=== PATIENT | male | born 1940 | race Caucasian/White ===

== ENCOUNTER 2020-11-30 08:43 | Outpatient (CLI) | payer MEDICARE, SELFPAY ==
[2020-11-30 09:17] LABS: Anion Gap 7 mmol/L (8-16); Blood Urea Nitrogen 23 mg/dL (9-20); Calcium 9.3 mg/dL (8.4-10.2); Carbon Dioxide 30 mmol/L (22-30); Chloride 104 mmol/L (98-107); Estimated Glomerular Filt Rate 45; Glucose 196 mg/dL (65-110); Potassium 4.3 mmol/L (3.4-5.0); Sodium 141 mmol/L (137-145)
== END 2020-11-30 08:44 | disposition home or self-care (01) ==
LOC: ANHSURGERY 08:48
PROVIDERS: Anesthesiology; PCP Emergency Medicine; Visit Provider Plastic Surgery
DX: Z01.818 Encounter for other preprocedural examination (principal); I10 Essential (primary) hypertension
CPT/HCPCS: 36415; 80048

== ENCOUNTER 2020-12-08 01:09 | Day surgery (SDC) | payer MEDICARE, SELFPAY ==
[2020-11-25 15:34] VITALS: BMI 38.3
--- NOTE | 2020-12-07 12:55 | WPDANESEPPF ---
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 Patient Data Age: 80 Gender: M Height: 1.73 m Weight: 114.35 kg Allergies Allergy/AdvReac Type Severity Reaction Status Date / Time No Known Allergies Allergy Verified 12/08/20 10:38 Home Medications Medication Instructions Recorded Confirmed Type alirocumab [Praluent Pen] 75 mg SUBCUT [id number] 11/25/20 11/25/20 History amlodipine 10 mg PO QAM 11/25/20 11/25/20 History aspirin [Aspir-81] 81 mg PO DAILY 11/25/20 11/25/20 History carbamazepine 100 mg PO TID 11/25/20 11/25/20 History cholecalciferol (vitamin D3) 25 mcg PO DAILY 11/25/20 11/25/20 History coQ10 (ubiquinol) 200 mg PO QPM 11/25/20 11/25/20 History finasteride 5 mg PO QAM 11/25/20 11/25/20 History furosemide 40 mg PO BID 11/25/20 11/25/20 History gabapentin 400 mg PO BID 11/25/20 11/25/20 History pantoprazole 20 mg PO DAILY 11/25/20 11/25/20 History Patient hx anesthesia problems: none Family hx anesthesia problems: none Results Review: All pre-operative results and documents have been reviewed as part of the pre-operative evaluation. [facility] Past Medical History Medical History (Updated 12/07/20 @ 12:56 by Vasile Haro DO) GERD (gastroesophageal reflux disease) Hyperlipidemia Hypertension Jaw pain STEPHANIE (obstructive sleep apnea) PONV (postoperative nausea and vomiting) Social History Social History Smoking status: Never smoker Living arrangements: alone Spiritual care concerns: No Anes - Eval Final PreProcedure Day of Procedure 12/07/20 12:55 Patient weight: obese Heart: regular rate and rhythm Lungs: clear to auscultation and normal air movement Airway: Mallampati scale class II Neurological: alert and oriented Last oral intake: >/= 8 hours ASA classification: III Emergent: no Anesthetic plan: proceed Anesthesia type and monitoring: general GIVS and standard monitoring Results Review: All pre-operative results and documents have been reviewed as part of the pre-operative evaluation. Informed Consent: The patient's anesthetic plan and its attendant risks and benefits were discussed with the patient/family/POA. Questions were solicited and answers provided to the satisfaction of the patient/family/POA.
--- NOTE | 2020-12-08 07:13 | WPDHPUPDATE1 ---
History and Physical Update Update Date/Time: 12/08/20 07:13 History and Physical has been reviewed, including an updated exam of the patient. There are NO changes in the patient's condition. Risks, benefits, and alternatives have been discussed and questions answered. Patient agrees to proceed with procedure.
[2020-12-08 10:11] VITALS: BP 182/76; PULSE 70; RESP 18; TEMP 36.2; O2SAT 100
[2020-12-08] MEDS: LACTATED RINGERS 1,000 ML 30 ML IV CONT (10:31)
[2020-12-08 10:36] LABS: Glucose Point of Care 122 mg/dl (65-105)
[2020-12-08] MEDS: LIDO 1%/EPINEPHRINE 1:100,000 50 ML VIAL INFILTRATE (12:14)
[2020-12-08 12:50] VITALS: BP 107/36; PULSE 71; RESP 16; O2SAT 97
--- NOTE | 2020-12-08 13:09 | P.OP_ITS ---
Procedure Note - Detailed Date of Procedure 12/08/20 Pre-op Diagnosis right carpal & cubital tunnel syndrome Post-op Diagnosis same Procedure Performed Right open carpal tunnel release and right ulnar neuroplasty at the elbow Surgeon Roberto Valderrama MD Corporate Director Jhoan christensen Anesthesia [facility] [place] Description of Procedure The right carpal tunnel and cubital tunnel areas were marked on the patient while waiting in the holding area. He was taken to the operating room and placed supine on the operating table. A time-out was held and confirmed. He was given IV sedation and the right upper extremity was prepped and draped in usual fashion. The 2 sites were marked for excision and locally infiltrated with 1% lidocaine with epinephrine. The extremity was exsanguinated and the tourniquet inflated to 250 mmHg. The incision in the palm was made 1st dissection was carried bluntly through the subcutaneous tissue to the palmar aponeurosis. This and the transverse carpal ligament were incised with a 15 blade. The canal was fully opened under 3 point retraction with scissors in both directions. No unusual anatomy was noted. The skin was closed with interrupted 4-0 nylon suture. Attention was turned to the right elbow which was flexed and supported on folded towels. The incision was made as marked and dissection was carried through the subcutaneous tissue to the ulnar nerve which was identified very easily prominently displayed proximal to the medial epicondyle. Distal to that point the overlying fibrous structures were this thick and were lysed with scissors. For the nerve did not sublux. It did not appear to be constricted under the flexor muscle fascia or proximal to the medial epicondyle. Those areas were explored. The wound was closed with intradermal 3-0 Monocryl suture at several sites and the skin was closed with a running intradermal 3-0 Monocryl. Soft flexible bandages were applied to both sites and Talha wraps applied. The tourniquet was released and is discharged from the operating room stable condition. He is discharged instructions in wound care and follow-up and a prescription for hydrocodone 5/325 10. Estimated Blood Loss 3 Tourniquet Time 33 Drains No Packing No Pathology none sent Complications No immediate complications Condition stable Disposition same day
[2020-12-08 13:20] VITALS: BP 137/48; PULSE 65; RESP 16
[2020-12-08 13:20] LABS: Glucose Point of Care 100 mg/dl (65-105)
== END 2020-12-08 14:04 | disposition home or self-care (01) ==
PROVIDERS: PCP Emergency Medicine; Visit Provider Plastic Surgery
PROC: (CPT 64721; principal; 2020-12-08 12:00)
DX: G56.01 Carpal tunnel syndrome, right upper limb (principal); G56.21 Lesion of ulnar nerve, right upper limb; I10 Essential (primary) hypertension; E78.5 Hyperlipidemia, unspecified; G47.33 Obstructive sleep apnea (adult) (pediatric); K21.9 Gastro-esophageal reflux disease without esophagitis; Z79.82 Long term (current) use of aspirin; E66.9 Obesity, unspecified; Z68.37 Body mass index [BMI] 37.0-37.9, adult
CPT/HCPCS: 64721; 64718; 36415; 80048; 82948; A9270; J2704; J3010; J7120

== ENCOUNTER 2021-01-24 08:55 | Outpatient (CLI) | payer MEDICARE, SELFPAY ==
[2021-01-24 10:34] LABS: Anion Gap 7 mmol/L (8-16); Blood Urea Nitrogen 21 mg/dL (9-20); Calcium 9.4 mg/dL (8.4-10.2); Carbon Dioxide 30 mmol/L (22-30); Chloride 102 mmol/L (98-107); Estimated Glomerular Filt Rate 49; Glucose 168 mg/dL (65-110); Potassium 3.5 mmol/L (3.4-5.0); Sodium 139 mmol/L (137-145)
[2021-01-29 08:37] LABS: Carbamazepine Tegretol 3.9 mcg/mL (4.0-12.0)
== END 2021-01-24 08:56 | disposition home or self-care (01) ==
LOC: ANHSURGERY 09:02
PROVIDERS: Anesthesiology; PCP Emergency Medicine; Visit Provider Plastic Surgery
DX: Z79.899 Other long term (current) drug therapy (principal); G89.29 Other chronic pain; Z01.818 Encounter for other preprocedural examination
CPT/HCPCS: 36415; 80048; 80156

== ENCOUNTER 2021-02-02 00:57 | Day surgery (SDC) | payer MEDICARE, SELFPAY ==
[2021-01-19 09:15] VITALS: BMI 38.0
--- NOTE | 2021-01-19 09:22 | PC.NURSE ---
Report to the Outpatient Waiting Room, entrance under the green pavilion located off [facility], at time _0830__ on date _02/02/21_. OR Time: _1030 AM_. - You and your visitor will be asked a series of questions to screen for COVID 19 for your protection. - A mask is required within the hospital. - Only one visitor is allowed at this time. Patient visitors will be guided where to wait when not with patient. Preoperative COVID Testing Requirements: No COVID Test needed if: (proof is required; if not received patient will have Rapid Test prior to entry) - Patient has received COVID Vaccine at least 14 days prior to procedure date or - Patient has positive COVID test result within last 90 days of surgery date. COVID Test needed if above criteria is not met If not COVID vaccinated a COVID test must be conducted within 72 hours of surgery and patient is asked to isolate self from time of testing until procedure. You will go to the [facility] for your COVID testing. The [facility] is located at the corner of [address] [facility]. You will only be called if COVID results are positive and your surgeon may reschedule your elective surgery date. Patients may have clear liquids (water, carbonated beverages, clear teas, apple juice) until 3 hours prior to surgery (0730 AM) with a maximum of 20 ounces. - No food from midnight until time of surgery - Infants may have breast milk until 4 hours before surgery, infant formula 6 hours prior to surgery. - Children will be allowed to drink immediately following surgery. If applicable, please bring a bottle or sippy cup to assist with drinking. Juice, water, soda, and popsicles are readily available. For infants on formula, please bring formula the day of surgery. Pacifiers are allowed. Take the following medications with a SIP of water the morning of surgery: AMLODIPINE, GABAPENTIN, CARBAMAZEPINE Medications to discontinue per physician __ALL VITAMINS_& SUPPLEMENTS Date to take last dose__01/29/21 Please no make-up, nail persian, hairspray, perfume, deodorant, or body powder the day of surgery. No jewelry (including any body piercings) or valuables the day of surgery, leave them at home. Please take a shower or bath the night before, or the morning of, surgery with an antibacterial soap. Wear comfortable, loose fitting clothing. Children are encouraged to wear pajamas. - Jewelry must be removed prior to entering the operating room. Rings and piercings that are not removed may be cut off. - The hospital will not accept responsibility for valuables. - Please leave all valuables, including medications, at home the day of surgery. If you are going home after surgery, a licensed dairy truck driver must drive you home. - NO public transportation without another adult. - We recommend that an adult stay with you for 24 hours following discharge. - We also recommend that you do not drive, make important decision, drink alcoholic beverages, or take any drugs that were not prescribed by your health care provider for at least 24 hours after your discharge time. For Pediatric surgeries, we recommend two adults accompany the child home (only one inside the building at this time). Follow any additional instructions given to you from your surgeon. Telephone instructions given to ___PT and asked if any additional questions and then verbalized understanding. Patient advised to call surgeon office or pre surgery nurse liaison [phone] if any additional questions.
--- NOTE | 2021-02-01 14:46 | P.PNAN_ITS ---
Anes - Initial Pre Proc Eval Procedure: Operation Date: 02/02/21 10:30 Proposed Procedures p Left Open Carpal Tunnel Release, Left Ulnar Neuroplasty at Elbow - Roberto Valderrama MD Date/Time: 02/01/21 14:46 Surgeon: Roberto Valderrama MD Pre Op Diagnosis: left carpal and cubital tunnel syndrome Patient Data Age: 80 Gender: M Height: 1.73 m Weight: 113.4 kg Allergies Allergy/AdvReac Type Severity Reaction Status Date / Time No Known Allergies Allergy Verified 02/02/21 08:55 Home Medications Medication Instructions Recorded Confirmed Type Praluent Pen 75 mg SUBCUT [id number] 11/25/20 02/02/21 History amlodipine 10 mg PO QAM 11/25/20 02/02/21 History aspirin 81 mg PO DAILY 11/25/20 02/02/21 History carbamazepine 100 mg PO TID 11/25/20 02/02/21 History cholecalciferol (vitamin D3) 25 mcg PO DAILY 11/25/20 02/02/21 History coQ10 (ubiquinol) 200 mg PO QPM 11/25/20 02/02/21 History finasteride 5 mg PO QAM 11/25/20 02/02/21 History furosemide 40 mg PO BID 11/25/20 02/02/21 History gabapentin 400 mg PO BID 11/25/20 02/02/21 History pantoprazole 20 mg PO DAILY 11/25/20 02/02/21 History Patient hx anesthesia problems: none Family hx anesthesia problems: none Results Review: All pre-operative results and documents have been reviewed as part of the pre-operative evaluation. [facility] Past Medical History Medical History (Updated 12/07/20 @ 12:56 by Vasile Haro DO) GERD (gastroesophageal reflux disease) Hyperlipidemia Hypertension Jaw pain STEPHANIE (obstructive sleep apnea) PONV (postoperative nausea and vomiting) Social History Social History Smoking status: Never smoker Second hand tobacco smoke exposure: No Alcohol intake: never Substance use: never Substance use type: does not use Living arrangements: alone Spiritual care concerns: No Anes - Eval Final PreProcedure Day of Procedure 02/01/21 14:46 Patient weight: obese Heart: regular rate and rhythm Lungs: clear to auscultation and normal air movement Airway: Mallampati scale class II Neurological: alert and oriented Last oral intake: >/= 8 hours ASA classification: III Emergent: no Anesthetic plan: proceed Anesthesia type and monitoring: general GIVS and standard monitoring Results Review: All pre-operative results and documents have been reviewed as part of the pre-operative evaluation. Informed Consent: The patient's anesthetic plan and its attendant risks and benefits were discussed with the patient/family/POA. Questions were solicited and answers provided to the satisfaction of the patient/family/POA.
--- NOTE | 2021-02-02 07:12 | WPDHPUPDATE1 ---
History and Physical Update Update Date/Time: 02/02/21 07:12 History and Physical has been reviewed, including an updated exam of the patient. There are NO changes in the patient's condition. Risks, benefits, and alternatives have been discussed and questions answered. Patient agrees to proceed with procedure.
[2021-02-02 08:45] VITALS: BP 142/84; PULSE 56; RESP 16; TEMP 36.3; O2SAT 99
--- NOTE | 2021-02-02 08:50 | SUR.PREOP ---
0366 called into or room to inform dr ramirez about abrasion to top of right hand with bandaid to site.no evidence of infection when reapplied bandaid.
[2021-02-02] MEDS: LACTATED RINGERS 1,000 ML 30 ML IV CONT (09:14)
--- NOTE | 2021-02-02 10:19 | SUR.PREOP ---
1019 pt informed delay in procedure.
[2021-02-02] MEDS: LIDO 1%/EPINEPHRINE 1:100,000 50 ML VIAL INFILTRATE (12:11)
[2021-02-02 12:50] VITALS: BP 121/63; PULSE 53; RESP 16; O2SAT 99
--- NOTE | 2021-02-02 13:07 | P.OP_ITS ---
Procedure Note - Detailed Date of Procedure 02/02/21 Pre-op Diagnosis left carpal and cubital tunnel syndrome Post-op Diagnosis same Procedure Performed Left open carpal tunnel release and left ulnar neuroplasty at the elbow Surgeon Roberto Valderrama MD Physical Therapist Technician Alisha Anesthesia [facility] Description of Procedure The 2 sites were marked on the patient in the holding area with his consent. The patient was taken to the operating room and placed supine on the operating table. Time-out was held and confirmed. He was given IV sedation and the extremity was prepped and draped in usual fashion. The 2 sites were marked on the patient and each locally infiltrated with 1% lidocaine with epinephrine. The tourniquet was inflated to 250 mmHg. The surgery was begun and the palm where the incision was made as marked. Dissection was carried bluntly through the subcutaneous tissue to the palmar aponeurosis. This and the transverse retinacular were incised with a 15 blade. Under 3 point retraction the ligament was divided distally and proximally to completely release kit. There was no unusual anatomy noted. The skin was closed with interrupted 4-0 nylon suture. Attention was turned to the elbow this was flexed and supported on folded towels. The incision was made as marked passing between the medial epicondyle on the olecranon. The triceps and ulnar nerve were identified just proximal to the medial epicondyle. These 2 were from each other and the nerve was tracked under Smith's ligament at which area the nerve appeared to be constricted. The complete lysis in that area was done extending under the flexor muscles. Small vessel ends cauterized prior to release of the tourniquet. The wound closed with intradermal interrupted 3-0 Monocryl sutures cross hatching yang. This apposed the wound margins. The skin was closed with a running intradermal 3-0 Monocryl. The usual bandage was applied to both sites. The patient is discharge instructions wound care follow-up in a prescription for hydrocodone 7. Estimated Blood Loss 2 Tourniquet Time 27 Drains No Packing No Pathology none sent Complications No immediate complications Condition stable Disposition same day
[2021-02-02 13:20] VITALS: BP 147/67; PULSE 50; RESP 16
== END 2021-02-02 14:00 | disposition home or self-care (01) ==
PROVIDERS: PCP Emergency Medicine; Visit Provider Plastic Surgery
PROC: (CPT 64721; principal; 2021-02-02 10:30)
DX: G56.02 Carpal tunnel syndrome, left upper limb (principal); G56.22 Lesion of ulnar nerve, left upper limb; I10 Essential (primary) hypertension; E78.5 Hyperlipidemia, unspecified; G47.33 Obstructive sleep apnea (adult) (pediatric); K21.9 Gastro-esophageal reflux disease without esophagitis; E66.9 Obesity, unspecified; Z68.37 Body mass index [BMI] 37.0-37.9, adult; Z79.82 Long term (current) use of aspirin
CPT/HCPCS: 64721; 64718; 36415; 80048; 80156; J2704; J3010; J7120

== ENCOUNTER 2024-09-09 09:05 | Inpatient (IN) | payer MEDICARE, SELFPAY ==
[2024-09-09] VITALS (8 sets, daily range): BP systolic 132–167; BP diastolic 68–95; PULSE 60–84; RESP 13–20; TEMP 36.3–36.6; O2SAT 94–99; BMI 40.2
--- NOTE | ~2024-09-09 | CT_ITS ---
Exam CT cervical spine w con, CT thoracic lumbar w con 09/09/2024 10:25 CDT History extremity weakness Comparison None Technique Thin helical images of the cervical, thoracic and lumbosacral spine were obtained with intravenous co ntrast according to standard protocol. Coronal and sagittal reformatted images are provided. Findings CERVICAL SPINE: Alignment of the cervical spine is anatomic. Vertebral body heights are preserved. Multilevel degener ative changes are seen in the cervical spine. No fracture or subluxation is demonstrated. The dens is intact, and the atlanto-dens interval is normal. Pre-vertebral soft tissues are unremarkable. The vi sualized lung apices are clear. THORACIC SPINE: No fracture or gross subluxation is appreciated. Alignment is satisfactory. No intraspinal or paraspi nal mass or hematoma appreciated. No significant lesion of the visualized airway or lungs. Bibasilar dependent changes. No gross mass or adenopathy identified, considering lack of IV contrast for this e xam. LUMBOSACRAL SPINE: For the purposes of this dictation there are 5 segmented lumbar vertebral bodies, and the S1 segment is incorporated into the sacrum. The lumbar vertebral body heights and densities are within normal limits. Grade 1 retrolisthesis of L 5 across S1, likely degenerative. L3-4 posterior spinal fusion hardware. Intact hardware and no loose honey. Intervertebral disc space narrowing at L5-S1 and T12-L1. No destructive bony lesion or spondylolysis is detected. No significant disk bulge is appreciated, and there is no spinal or foraminal stenosis is detected. No intraspinal or paraspinal mass is identified. Multiple bilateral renal cysts are seen. Impression 1. Multilevel degenerative changes. No acute fracture of the cervical, thoracic or lumbar spine detec vanita by CT. Reviewed, dictated and finalized at location A. Impression 1. Multilevel degenerative changes. No acute fracture of the cervical, thoracic or lumbar spine detected by CT. Impression 1. Multilevel degenerative changes. No acute fracture of the cervical, thoracic or lumbar spine detected by CT.
--- NOTE | ~2024-09-09 | XR_ITS ---
EXAMINATION: XR lumbar puncture diagnostic DATE: 09/09/2024 17:21 INDICATION: Extremity weakness TECHNIQUE: The procedure including the risks and benefits was discussed with the patient. Risks discu ssed included spinal headache, cerebrospinal fluid leak, bleeding, and infection. The patient underst ood the risks and agreed to proceed. A timeout was performed to verify the patient's name, date of , and procedure to be performed. The skin overlying the L3-L4 level was prepped and draped in usual sterile fashion. Subcutaneous 1% lidocaine was used for local anesthesia. A 20 gauge spinal n eedle was advanced under fluoroscopic guidance. The needle was removed and the entry site was cleaned and dressed. There were no immediate complications. A total of 1 fluoroscopic image and one crossta ble lateral radiograph were obtained. The amount of fluoroscopy time used during this procedure was 0 .9 minutes.. Total DAP was 33.5 mGycm^2 The patient was taken to the nursing area for observation. FINDINGS: There is an L3 laminectomy with combined enhancement at anterior and posterior spinal fusio n at L3-L4. Real-time fluoroscopy demonstrates the needle at the L3-L4 level. Opening pressure was 29 cm water. (Normal range is variably defined as 6-20 cm water and up to 25 cm water in obese patients . Pressure >25 cm water is one of the modified Dandy criteria for idiopathic intracranial hypertensio n). 11.5 mL of clear, pink-tinged fluid was collected in 4 tubes. IMPRESSION: 1. Successful fluoro-guided lumbar puncture with elevated opening pressure of 29 cm water. Reviewed, dictated and finalized at location A. IMPRESSION: 1. Successful fluoro-guided lumbar puncture with elevated opening pressure of 2 9 cm water.
--- NOTE | ~2024-09-09 | CT_ITS ---
History: Weakness PROCEDURE: CT head without contrast. COMPARISON: None TECHNIQUE: Axial imaging of the head performed from the skull base to the vertex without IV contrast. Sagittal a nd coronal reformations obtained. DLP: 605 mGy-cm FINDINGS: The ventricles are enlarged. The dilatation of the ventricles is proportional to the degree of sulcal prominence, not uncommon in the senescent brain. Calcifications within the bilateral basal ganglia, a nonspecific finding. Decreased attenuation is identified within the periventricular white matter, likely secondary to micr ovascular ischemic disease, in a patient of this age. There is no mass, mass effect or midline shift. There is no abnormal extra-axial fluid collection or intracranial hemorrhage. Visualized paranasal sinuses are clear. The mastoid air cells are well aerated. No acute displaced fractures within the overlying cranium. Impression: No acute intracranial hemorrhage or suspicious mass effect. Reviewed, dictated and finalized at location A. Impression: No acute intracranial hemorrhage or suspicious mass effect.
--- NOTE | ~2024-09-09 | XR_ITS ---
CHEST RADIOGRAPH CLINICAL HISTORY: weak . COMPARISON: None available TECHNIQUE: Single portable view of the chest. FINDINGS The left mid lung is partially obscured due to pacemaker/AICD generator. Wires project over the right atrium, coronary sinus and right ventricle. Sternal wires and mediastinal clips are identified, the wires are midline and intact. The remainder of the cardiomediastinal silhouette is enlarged, but otherwise unremarkable. Hazy opacification of the left hemidiaphragm, findings suggesting a small left-sided pleural effusion . The remainder of the lungs are clear. IMPRESSION: Small left-sided pleural effusion without focal infiltrate. Reviewed, dictated and finalized at location A.
--- OUTSIDE RECORDS SUMMARY | 2024-09-09 09:47 | XMS_ITS | Clinical Summary ---
Author Organization [facility] Address [address] [place] [address] Care Team Providers Care Rn Interventional Name Role Phone Unavailable Primary Care Provider Unavailabl e Source Comments [facility],non-owned Affiliates and Associated Physician Practices is amultiple site organization consisting of ambulatory clinics and hospital sitesin [place], [place], [place] and [place]. This disclosure is being madepursuant to the Care Everywhere program and may not contain all information available regarding this patient. Last updated 17.[facility] Allergies Active Allergy Reactions Criticality Noted Date Comments Atorvastatin Other 08/17/2015 Cannot tolerate Ezetimibe Myalgias 08/17/2015 Rosuvastatin Myalgias 01/30/2018 Medications * Be aware that medications may not be up to date on this document. Alwaysverify current medications with the patient. PRALUENT 75 MG/ML injection Inject 1 mL subcutaneously every 14 days 0 Active amLODIPine (NORVASC) 10 MG tablet Take 10 mg by mouth once daily 0 Active aspirin buffered (BUFFERIN LOW DOSE) 81 MG tablet Take 81 mg by mouth once daily Active carBAMazepine (TEGRETOL) 100 MG chew tablet Take 1 tablet by mouth 3 times daily 0 Active Cholecalcifero l 25 MCG (1000 UT) Take 1,000 Units by mouth once daily 7 Active Coenzyme Q10 10 MG Take 1 capsule by mouth once daily 4 Active finasteride (PROSCAR) 5 MG tablet Take 5 mg by mouth once daily 0 Active Flaxseed, Linseed, (FLAXSEED OIL) 1000 MG Take 1,000 mg by mouth 2 times daily 4 Active furosemide (LASIX) 40 MG tablet Take 40 mg by mouth 2 times daily 0 Active gabapentin (NEURONTIN) 400 MG capsule Take 1 capsule by mouth 2 times daily 0 Active pantoprazole EC (PROTONIX) 40 MG tablet Take 40 mg by mouth once daily 0 Active tamsulosin (FLOMAX) 0.4 MG capsule Take 0.4 mg by mouth once daily 0 Active HYDROcodone-ac etaminophen (NORCO) 5-325 MG tablet Take 1-2 tablets by mouth every 4 hours as needed for Pain 60 tablet 0 Active chlorzoxazone (PARAFON FORTE DSC) 500 MG tablet Take 1 tablet by mouth every 6 hours while awake 100 tablet 0 Active Active Problems Problem Noted Date Diagnosed Date Lumbar back pain 09/28/2019 Lumbar stenosis with neurogenic claudication CAD (coronary artery disease) 09/01/2019 Overview (09/01/2019): Last Assessment & Plan: Well-controlled at this time, with out anginal symptoms. Regular follow-up with cardiology. Continues on daily low-dose aspirin, lipid-lowering agent, furosemide. No treatment change. Sacroiliitis 11/05/2018 Lumbar radiculopathy 07/07/2018 Overview (09/01/2019): Last Assessment & Plan: See neuralgia, above. Patient continues with interventional pain management as well, which gives temporary relief. He is due for his third of 3 injections this week. Renewing his diazepam for preprocedural sedation. Penile lesion 05/24/2018 Overview (09/01/2019): Last Assessment & Plan: Balanitis, vs. Chafing. Treat with moisture control, topical mupirocin, low- potency topical corticosteroid. Patient to call if not improving despite treatment. Prediabetes 04/02/2018 Overview (09/01/2019): Last Assessment & Plan: Well within the controlled range or mid prediabetic range at last draw at the end of March. Will repeat in 6 months. Neuralgia 12/20/2017 Overview (09/01/2019): Last Assessment & Plan: Patient continues to take carbamazepine, and gabapentin for symptom relief, with reasonable effect. No treatment change. S/P CABG (coronary artery bypass graft) 11/06/19 18 Diffusion capacity of lung (dl), decreased 12/11 Chronic renal insufficiency, stage III (moderate ) 10/15/2016 Overview (09/01/2019): Transitioned From: Chronic renal insufficiency Last Assessment & Plan: Regular follow-up with nephrology, due next month. Relatively stable creatinine. No treatment change at this time. Edema 10/15/2016 Abnormal finding on lung imaging 09/05/2016 Cholelithiasis 08/02/2016 Overview (09/01/2019): Transitioned From: Gallstones BMI 38.0-38.9,adult 05/07/2016 Overview (09/01/2019): Transitioned From: Morbid obesity Last Assessment & Plan: Patient continues to exercise regularly to monitor his dietary intake. Encouraged continued activities. Essential hypertension 08/21/2015 Overview (09/01/2019): Last Assessment & Plan: Well controlled. 1. Medication: continue current medication regimen unchanged, encouraged home monitoring, call for persistent elevations at or above 130/85. 2. Regular aerobic exercise 3. Recheck in 6 months, sooner should new symptoms or problems arise. Mixed hyperlipidemia 08/21/2015 Overview (09/01/2019): Last Assessment & Plan: Patient with statin intolerance and moderate to severe coronary artery disease with hyperlipidemia, doing well on PCSK9 inhibitor. No treatment change. Paroxysmal atrial fibrillation 08/21/2015 Overview (09/01/2019): Last Assessment & Plan: Stable at this time, controlled, with chronic anticoagulation as managed by cardiology. Aspirin for chronic anticoagulation, warfarin was discontinued in early May. Medication management 04/19/2015 Overview (09/01/2019): Transitioned From: detention use of drug Last Assessment & Plan: Routine repeat lab work in 6 months. 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 Check vitamin B12 and folic acid at next blood draw. Immunizations Immunization Administration Dates Next Due INFLUENZA VACCINE 02/18/2012 PNEUMOCOCCAL PPSV23 05/09/2017 Pneumococcal Pcv13 Conj 05/07/2016 ZOSTER VACCINE, LIVE 05/09/2016 Family History Medical History Relation Name Comments Cancer - Other Father Brain cancer CVA Mother Hyperlipidemia Mother Other Son Has a stent, no t sure where Relation Name Status Comments Father Mother Son Alive Social History Tobacco Use Types Packs/Day Years Used Date Smoking Tobacco: Never Smokeless Tobacco: Never Tobacco Cessation:Counseling Given: No Comments:N/A Alcohol Use Standard Drinks/Week Comments Never 0 (1 standard drink = 0.6 oz pur e alcohol) AUDIT-C Answer Date Recorded Q1: How often do you have a drink containing alc ohol? 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 Gender Identity Not on file Sexual Orientation Not on file Last Filed Vital Signs Vital Sign Reading Time Taken Comments Blood Pressure 139/64 09/29/2019 8:07 AM CDT Pulse 69 09/29/2019 8:07 AM CDT Temperature 36.9 C (98.4 F) 09/29/2019 8:07 AM CDT Respiratory Rate 18 09/29/2019 8:07 AM CDT Oxygen Saturation 95% 09/29/2019 8:07 AM CDT Inhaled Oxygen Concentration - - Weight 108.4 kg (239 lb) 09/28/2019 5:36 AM CDT Height 172.7 cm (5' 7.99) 09/28/2019 5:36 AM CD T Body Mass Index 36.35 09/28/2019 5:36 AM CDT Plan of Treatment Health Maintenance Due Date Last Done Comments DTAP/TDAP/TD VACCINES (1 - Tdap) 1961 ZOSTER VACCINE (2 of 3) 07/04/2016 05/09/2016 Respiratory Syncytial Virus (RSV) Vaccine Pt: or over 60 yrs (1 - 1-dose 75+ series) 2017 COVID-19 VACCINE (1 - 2023-2 5 season) 2023 DEPRESSION SCREENING 03/04/2024 INFLUENZA VACCINE (Season Ended) 2024 12/12/2018, 02/18/2012 PNEUMOCOCCAL VACCINE 50+ Completed 018, 05/07/2016 HEPATITIS B VACCINE Aged Out No longe r eligible based on patient's age to complete this topic HIB VACCINE Aged Out No longer eligi ble based on patient's age to complete this topic HPV VACCINE Aged Out No longer eligi ble based on patient's age to complete this topic MENINGOCOCCAL (Group B) VACCINE SHARED DECISION-MAKING Aged Out No longer eligible based on patient's age to complete this topic MENINGOCOCCAL GROUPS A/C/Y/W VACCINE Aged Out No longer eligible b ased on patient's age to complete this topic Insurance [employer]
--- OUTSIDE RECORDS SUMMARY | 2024-09-09 09:47 | XMS_ITS | Clinical Summary ---
Author Organization [facility] Address [address] [place] [address] Care Team Providers Care Mainspring Winder And Oiler Name Role Phone Tyler Valdez MD Primary Care Provider + Allergies Active Allergy Reactions Criticality Noted Date Comments Atorvastatin Other (See comments) Low 08/17/2015 Cannot tolerate Cannot tolerate Ezetimibe Joint pain,Other (Se e comments),Muscle pain Medium 08/17/2015 Rosuvastatin Joint pain,Other (Se e comments) Low 01/30/2018 Medications aspirin 81 mg enteric coated tablet Take 81 mg by mouth daily Active Praluent Pen 75 mg/mL pen injector INJECT 1 ML (75 MG TOTAL) INTO THE SKIN EVERY 14 DAYS. 04/21/2020 Active amLODIPine (NORVASC) 10 mg tablet Take 10 mg by mouth daily 04/03/2020 Active cholecalciferol (VITAMIN D-3) 25 mcg (1,000 unit) tablet Take 1,000 Units by mouth daily 10/15/2016 Active finasteride (PROSCAR) 5 mg tablet Take 5 mg by mouth daily 03/28/2020 Active furosemide (LASIX) 40 mg tablet Take 40 mg by mouth 2 (two) times a day 03/27/2020 Active gabapentin (NEURONTIN) 400 mg capsule Take 400 mg by mouth 2 (two) times a day 05/09/[address] (PROTONIX) 20 mg EC tablet Take 20 mg by mouth daily 03/24/2020 Active tamsulosin (FLOMAX) 0.4 mg extended release capsule Take by mouth daily 04/23/2020 Active coenzyme Q10 10 mg capsule Take 1 capsule by mouth daily 01/12/2014 Active carBAMazepine (TEGretol) 100 mg chewable tabletIndicatio ns:Atypical face pain Take 1 tablet (100 mg total) by mouth 3 (three) times a day 90 tablet 04/11/2021 Active Active Problems Problem Noted Date Diagnosed Date Lumbar spondylosis 06/13/2020 Assessment & Plan (06/13/2020 11:28 AM CDT): Patient has prior history of lumbar spondylosis with medically refractory low back pain. He underwent course of lumbar epidural steroid injections without improvement and ultimately underwent low back surgery was improvement of his low back pain. Medication monitoring encounter 06/13/2020 Assessment & Plan (06/13/2020 11:28 AM CDT): Patient has undergone recent CBC and electrolyte panel screening for potential neutropenia and hyponatremia associated with continued carbamazepine usage. These levels are normal. 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 with symptomatic relief. He is not in need of refill of medication at this time. 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 I have provided patient a copy of his EMG/NCS results in asked that he follow up with his PCP for referral to an upper extremity surgeon of his PCPs preference. Given the electrophysiologic findings, I do not believe he would benefit from a trial of conservative nonsurgical treatment at this time but should pursue consideration of surgical decompressions. I will see him back in the office from the medical neurological standpoint on an as-needed basis. Assessment & Plan (06/13/2020 11:27 AM CDT): Patient has a 1 year history of progressively worsening pain and numbness in the palmar aspects of both hands diffusely. Differential diagnosis includes compressive neuropathy or polyneuropathy. Cervical radiculopathy would be less likely clinically. I will obtain EMG/NCS assessment at [facility] for further evaluation. I will see him back thereafter. Surgical History Surgery Date Site/Laterality Comments HEART SURGERY BACK SURGERY Medical History Medical History Date Comments Hypertension High cholesterol Family History Medical History Relation Name Comments No Known Problems Brother Cancer Father No Known Problems Mother No Known Problems Sister Relation Name Status Comments Brother Father Mother Sister Alive Social History Tobacco Use Types Packs/Day Years Used Date Smoking Tobacco: Never Smokeless Tobacco: Never Personal Safety Answer Date Recorded Getting School Help Needed Not on file 05/18 Sex and Gender Information Value Date Recorded Sex Assigned at Not on file 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 Gender Identity Not on file Sexual Orientation Not on file Obstetrics History Last Filed Vital Signs Vital Sign Reading Time Taken Comments Blood Pressure 118/68 09/22/2020 9:33 AM CDT Pulse 71 09/22/2020 9:33 AM CDT Temperature 36.6 C (97.8 F) 09/22/2020 9:33 AM CDT Respiratory Rate - - Oxygen Saturation - - Inhaled Oxygen Concentration - - Weight 114.6 kg (252 lb 9.6 oz) 09/22/2020 9:33 AM CDT Height 172.7 cm (5' 8) 09/22/2020 9:33 AM CDT Body Mass Index 38.41 09/22/2020 9:33 AM CDT Plan of Treatment Not on file Insurance T MEDICARE AETNA MEDICARE [facility] MEDICARE Address: [facility] [id number] [place] [id number] Care Teams Mainspring Winder And Oiler Relationship Specialty Start Date End Date Tyler Valdez MD PCP - General Internal Medicine 04/22/20
--- OUTSIDE RECORDS SUMMARY | 2024-09-09 09:47 | XMS_ITS | Clinical Summary ---
Author Organization [facility] Address [address] [place] [id number] Phone Care Team Providers Care Entry Level Finance Name Role Phone Tyler Valdez MD Primary Care Provider [phone] Allergies No known active allergies Medications Vitamin D, Cholecalciferol , 1000 units tablet One tab daily 0 7 Active carBAMazepine (CARBATROL) 100 MG 12 hr capsule Take 100 mg by mouth 3 times a day Active Coenzyme Q10 (COQ-10) 10 MG capsule Take 10 mg by mouth 1 (one) time each day Active furosemide (LASIX) 40 MG tablet Take 40 mg by mouth 2 (two) times a day Active gabapentin (NEURONTIN) 300 MG capsule Take by mouth 2 (two) times a day 300mg morning & 600mg bedtime Active pantoprazole (PROTONIX) 20 MG EC tablet Take 20 mg by mouth 1 (one) time each day before breakfast Active losartan (COZAAR) 25 MG tablet Take 25 mg by mouth 1 (one) time each day Active finasteride (PROSCAR) 5 MG tablet Take 5 mg by mouth 1 (one) time each day Active metoprolol succinate XL (TOPROL-XL) 25 MG 24 hr tablet Take 25 mg by mouth 1 (one) time each day Active aspirin (ST NICK) 81 MG EC tablet Take 81 mg by mouth 1 (one) time each day Active spironolactone (ALDACTONE) 25 MG tablet Take 0.5 tablets by mouth 1 (one) time each day Active oxybutynin XL (DITROPAN-XL) 5 MG 24 hr tablet Take 5 mg by mouth 1 (one) time each day Active tiZANidine (ZANAFLEX) 4 MG tablet Take 4 mg by mouth at bed time Active nystatin (MYCOSTATIN) 257632 UNIT/GM powder Apply topically 2 (two) times a day Active calcium carbonate (OS-JOHANA) 1250 (500 Ca) MG tablet Take 1 tablet by mouth in the morning and 1 tablet in the evening. Active senna-docusate (Senexon-S) 8.6-50 MG per tablet Take 1 tablet by mouth in the morning and 1 tablet in the evening. Active Evolocumab (Repatha) 140 MG/ML solution prefilled syringe Inject 1 mL under the skin every 14 (fourteen) days Active Menthol-Zinc Oxide (CALMOSEPTINE EX) Apply topically As directed Active Lidocaine 1.8 % patch Apply topically 1 (one) time each day if needed for mild pain Active polyethylene glycol (GLYCOLAX) 17 g packet Take 17 g by mouth 1 (one) time each day Active Active Problems Problem Noted Date Diagnosed Date Chronic kidney disease stage 3A 03/24/2024 Edema of lower extremity 03/24/2024 Proteinuria 03/21/2021 Essential (primary) hypertension 10/15/2016 Obstructive sleep apnea 10/15/2016 Resolved Problems Problem Noted Date Diagnosed Date Resolved Date Chronic kidney disease stage 3B 10/15/2016 03/24/2024 Edema 10/15/2016 02/11/2020 Immunizations Immunization Administration Dates Next Due Influenza TIV (IM) 12/06/2014(Deferred: Patient Refused) Family History Medical History Relation Comments Diabetes mellitus Relative 1 Heart disease Relative 2 Hypertensive disorder Relative 3 Cerebrovascular accident Relative 4 Kidney disease Sibling 1 Malignant neoplastic disease Sibling 2 Relation Status Comments Relative 1 Relative 2 Relative 3 Relative 4 Sibling 1 Sibling 2 Social History Tobacco Use Types Packs/Day Years Used Date Smoking Tobacco: Never Smokeless Tobacco: Never Tobacco Cessation:Counseling Given: Not Answered Alcohol Use Standard Drinks/Week Comments Never 0 (1 standard drink = 0.6 oz pur e alcohol) AUDIT-C Answer Date Recorded Frequency of Alcohol Consumption Never 12/03/2018 Average Number of Drinks Not on file 019 Frequency of Binge Drinking Not on file 04/2018 Sex and Gender Information Value Date Recorded Sex Assigned at Not on file 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 Gender Identity Not on file Sexual Orientation Not on file Last Filed Vital Signs Vital Sign Reading Time Taken Comments Blood Pressure 139/78 03/24/2024 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 Pulse 83 03/24/2024 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 Temperature - - Respiratory Rate - - Oxygen Saturation - - Inhaled Oxygen Concentration - - Weight 109 kg (240 lb) 03/24/2024 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 pe r pt Height 172.7 cm (5' 8) 03/24/2024 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 Body Mass Index 36.49 03/24/2024 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 Plan of Treatment Upcoming Encounters Date Type Department Care Team (Late st Contact Info) Description 03/23/2025 3:20 PM SETTLEMENT PROCESSOR Office Visit [facility] [address], [address] [place], [place] [id number] Fito Nolen MD [address] [address] Health Maintenance Due Date Last Done Comments Pneumococcal PPSV23/PCV13 65 + Years / High and Highest Risk (2 of 4 - PPSV23, PCV20, or PCV21) 07/02/2016 05/07/2016 COVID-19 Vaccine (4 - 2023- season) 2023 01/18/2021, 05/18/2020, 04/20/2020 Influenza Vaccine (#1) 2024 9, 12/12/2018, 02/18/2012 Insurance MEDICARE [facility] PM INTERFACED INSURANCE Care Teams Entry Level Finance Relationship Specialty [place] [address] [place] [address] PCP - General 03/22/20
--- OUTSIDE RECORDS SUMMARY | 2024-09-09 09:47 | XMS_ITS | Referral Summary ---
Author Organization [facility] Address [address] [place] [address] Care Team Providers Care Auto Inspection Specialist Name Role Phone Tyler Valdez MD Primary [...] clinically. I will obtain EMG/NCS assessment at [facility] for further evaluation. I will see him back thereafter. 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
--- NOTE | 2024-09-09 09:49 | ED_ITS ---
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 Carty in 2020 presents emergency department via EMS from [place] with reported weakness. Patient states in October of 2019 for a mechanical fall and broke a vertebrae in his back. He underwent surgery at [facility] in November of 2023, he does not know the surgeon's name. Since then he has been having some weakness and has been working on physical therapy, however the past 3 weeks he had acute onset worsening weakness to his extremities. He states the weakness started in his bilateral knees, then went to his feet and have progressed to his arms over the past 2 days. He states up until 3 weeks ago he was able to ambulate with a walker without difficulty and over the past 2 days has been unable to stand to urinate. He states he has chronic decreased sensation throughout which does not seem to have changed. He notes that his right lower extremity seems to be more weak than his left and he has been having intermittent myoclonic jerks in the right leg. He states he has had intermittent jerking in the right leg since his back surgery but it seems to have increased over the past few weeks. He also states he is unable to fully extend his 3rd through 5th digits to his bilateral heads over the past 2 days. He denies headache, vision changes, chest pain or shortness of breath, abdominal pain, nausea vomiting, diarrhea, dysuria or hematuria, saddle anesthesia, bowel or bladder incontinence, recent illness, fever. <Mckenna Patel PA-C - Last Filed: 09/09/24 15:40> Related Data Home medications: Home Medications ?Medication ?Instructions ?Recorded ?Confirmed ?Last Taken ?Type aspirin 81 mg tablet,delayed 81 mg PO DAILY 11/25/20 09/09/24 02/01/21 History release cholecalciferol (vitamin D3) 25 25 mcg PO DAILY 11/25/20 09/09/24 01/30/21 History mcg (1,000 unit) tablet coQ10 (ubiquinol) 200 mg capsule 200 mg PO QPM 11/25/20 09/09/24 01/30/21 History finasteride 5 mg tablet 5 mg PO QHS 11/25/20 09/09/24 02/01/21 History furosemide 40 mg tablet 40 mg PO BID 11/25/20 09/09/24 02/01/21 History pantoprazole 20 mg tablet,delayed 20 mg PO DAILY 11/25/20 09/09/24 01/30/21 History release calcium carbonate ([place] 500 mg PO BID 09/09/24 09/09/24 Unknown History Calcium) carbamazepine 100 mg 100 mg PO TID 09/09/24 09/09/24 Unknown History tablet,extended release,12 hr evolocumab 140 mg/mL subcutaneous 140 mg subcut .[id number] 09/09/24 09/09/24 Unknown History pen injector (atha Richard) gabapentin 300 mg capsule 300 mg PO DAILY 09/09/24 09/09/24 Unknown History gabapentin 600 mg tablet 600 mg PO QHS 09/09/24 09/09/24 Unknown History lidocaine 4 % topical patch 1 patch topical Q24H 09/09/24 09/09/24 Unknown History (Aspercreme (lidocaine)) losartan 25 mg tablet 25 mg PO DAILY 09/09/24 09/09/24 Unknown History metoprolol succinate 50 mg 50 mg PO DAILY 09/09/24 09/09/24 Unknown History tablet,extended release 24 hr nystatin 100,000 unit/gram topical 1 applic topical BID 09/09/24 09/09/24 Unknown History powder (Nystop) oxybutynin chloride 5 mg 5 mg PO QHS 09/09/24 09/09/24 Unknown History tablet,extended release 24 hr polyethylene glycol 3350 17 gram 17 g PO DAILY 09/09/24 09/09/24 Unknown History oral powder packet sennosides 8.6 mg-docusate sodium 1 tab-cap PO BID 09/09/24 09/09/24 Unknown History 50 mg tablet (Senexon-S) spironolactone 25 mg tablet 12.5 mg PO DAILY 09/09/24 09/09/24 Unknown History tizanidine 4 mg tablet 4 mg PO QHS 09/09/24 09/09/24 Unknown History <Mckenna Patel PA-C - Last Filed: 09/09/24 15:40> Allergies/Adverse reactions: Allergies Allergy/AdvReac Type Severity Reaction Status Date / Time atorvastatin Allergy Unknown Unknown Verified 09/09/24 09:26 ezetimibe Allergy Unknown Unknown Verified 09/09/24 09:26 rosuvastatin Allergy Unknown Unknown Verified 09/09/24 09:26 <Mckenna Patel PA-C - Last Filed: 09/09/24 15:40> Review of Systems 2 Review of Systems: All systems reviewed & are unremarkable except as noted in HPI and below <Mckenna Patel PA-C - Last Filed: 09/09/24 15:40> [facility] Past Medical History Medical History: Medical History (Updated 09/09/24 @ 18:14 by Rose Mary Snell APRN) Pacemaker Jaw pain PONV (postoperative nausea and vomiting) GERD (gastroesophageal reflux disease) STEPHANIE (obstructive sleep apnea) Hyperlipidemia Hypertension <Mckenna Patel PA-C - Last Filed: 09/09/24 15:40> Surgical History Surgical History: Surgical History S/P AVR (aortic valve replacement) <Mckenna Patel PA-C - Last Filed: 09/09/24 15:40> Social History Social History: Social History Smoking status: Never smoker Second hand tobacco smoke exposure: No Alcohol intake: never Substance use: never Substance use type: does not use Do You Feel Safe in your Home?: Yes Lack of Transportation: No Lack of Food: Never True Current Housing: I Have Housing Concerned About Future Housing: No Difficulty Paying Gas/Electric Bills: No Difficulty Paying for Meds: No Currently Unemployed: No Education: High School Diploma/GED Difficulty w/ Childcare or Family Care: No Living arrangements: alone Gender identity (if verbalized by the patient): Male Sexual Orientation (if Verbalized by the Patient): Straight or Heterosexual Spiritual care concerns: No <Mckenna Patel PA-C - Last Filed: 09/09/24 15:40> Exam 2 Narrative: GENERAL: Well-appearing, well-nourished, and in no acute distress. HEAD: Normocephalic, atraumatic. EYES: PERRLA and EOMI. No ophthalmoplegia ENT: Nares clear, no rhinorrhea or epistaxis. Mucous membranes moist. NECK: No midline cervical spinous tenderness, crepitus, step-offs or deformities BACK: Minimal tenderness to the lumbar spine and right SI with no overlying skin changes, crepitus, step-offs or deformities. No tenderness to the thoracic spine CHEST: Clear to auscultation. No respiratory distress. HEART: Regular rate and rhythm. No murmur heard. Normal peripheral pulses. ABDOMEN: Soft, nontender, nondistended, normal active bowel sounds. EXTREMITIES: Normal range of motion. 2+ pitting edema to bilateral lower extremities which is reportedly chronic and unchanged SKIN: Warm, dry, no rash. NEURO: Alert and oriented x4. Unable to dorsiflex right foot. Right foot plantarflexion and left foot dorsiflexion and plantar flexion 5/5. Minimally able to wiggle toes to the right foot, able to fully range toes to the left foot. 2/5 strength with bilateral hip flexion. Library Associate strength bilaterally 3/5. Shoulder abduction. adduction, elbow flexion and extension 5/5 bilaterally. Bilateral hands held with flexion of the 3rd through 5th position without inability to fully extend 3rd through 5th digits. No ataxia. Sensation slightly diminished throughout which is reportedly chronic, no new decreased sensation per patient. Positive Babinski <Mckenna Patel PA-C - Last Filed: 09/09/24 15:40> Course CHILD CARE CENTRE MANAGER/PA Physician Supervision This visit was performed by both a physician and an APC. I performed all aspects of the MDM as documented. <Torito Pretty MD - Last Filed: 09/09/24 18:25> Vital Signs Vital signs: Vital Signs Temperature 97.6 F 09/09/24 09:03 Pulse Rate 80 09/09/24 09:03 Respiratory Rate 13 09/09/24 09:03 Blood Pressure 147/85 H 09/09/24 09:03 Pulse Oximetry 99 09/09/24 09:03 Temperature 97.3 F L 09/09/24 17:15 Pulse Rate 80 09/09/24 17:15 Respiratory Rate 18 09/09/24 17:15 Blood Pressure 148/68 H 09/09/24 17:15 Pulse Oximetry 97 09/09/24 17:15 <Mckenna Patel PA-C - Last Filed: 09/09/24 15:40> Vital Signs Temperature 97.6 F 09/09/24 09:03 Pulse Rate 80 09/09/24 09:03 Respiratory Rate 13 09/09/24 09:03 Blood Pressure 147/85 H 09/09/24 09:03 Pulse Oximetry 99 09/09/24 09:03 Temperature 97.3 F L 09/09/24 17:15 Pulse Rate 80 09/09/24 17:15 Respiratory Rate 18 09/09/24 17:15 Blood Pressure 148/68 H 09/09/24 17:15 Pulse Oximetry 97 09/09/24 17:15 <Torito Pretty MD - Last Filed: 09/09/24 18:25> MDM - Weakness MDM Narrative Medical decision making narrative: 84-year-old male presents to the emergency department for progressive weakness to his extremities over the past 3 weeks. See HPI for further history. Vitals signs are stable. Exam is notable for the above. Differential diagnosis includes intracranial pathology such as intracranial hemorrhage or mass, transverse myelitis, spinal epidural abscess, syringomyelia, guillian barre syndrome, MS, polymyositis, and other. Will obtain lab work, infectious workup including lactic and blood cultures, UA, CXR, ESR and CRP, CT brain and CT cervical, lumbar and thoracic spine with contrast. Lab work shows no leukocytosis. Hemoglobin 13.9 with no prior for comparison. Chemistries with a BUN of 29, normal creatinine. Calcium mildly elevated at 3, fluids provided. UA is unremarkable. Chest x-ray shows a small left-sided pleural effusion without focal infiltrate. CK within normal limits. ESR and CRP are within normal limits. TSH and lactic within normal limits. EKG shows electronic ventricular pacemaker with a rate of 79 ppm, no ST elevations or depressions. Troponin is undetectable. CT brain shows no acute intracranial process. CT cervical, thoracic or lumbar spine with contrast shows multilevel degenerative changes with no acute fracture of the cervical, thoracic or lumbar spine detected L3-L4 posterior spinal fusion hardware with intact hardware and no loosening. I discussed findings and workup with neurologist, Dr. Israel. Recommends lumbar puncture and agrees to consult. Discussed with Dr. Thompson who will perform LP around 1530 this afternoon. Orders placed. He will likely need MRIs as well. Pt agrees to LP. Discussed risks/benefits or procedure. He is requesting to be DNR. Care coordination is coming to fill out DNR forms with patient. Discussed with hospitalist CHILD CARE CENTRE MANAGER, Rose Mary, who agrees to admission. <Mckenna Patel PA-C - Last Filed: 09/09/24 15:40> Lab Data Result diagrams: 09/09/24 09:23 09/09/24 09:23 <Mckenna Patel PA-C - Last Filed: 09/09/24 15:40> Labs: Lab Results 09/09/24 09/09/24 09/09/24 Range/Units 09:23 09:52 10:18 WBC 6.1 (4.5-10.0) K/mm3 RBC 4.47 L (4.6-6.20) M/mm3 Hgb 13.9 L (14.0-18.0) g/dL Hct 41.8 L (42.0-52.0) % MCV 93.5 (80-100) fl MCH 31.1 (26-34) pg MCHC 33.3 (32-36) g/dl RDW 12.9 (11.5-14.5) % Plt Count 157 (150-375) k/mm3 MPV 11.3 H (7.4-10.4) fl Immature Gran % (Auto) 0.3 (0-0.5) % Neut % (Auto) 66.1 (45.5-73.1) % Lymph % (Auto) 24.6 (18.3-44.2) % [place] % (Auto) 7.2 (2.6-8.5) % Eos % (Auto) 1.6 (0-4.4) % Baso % (Auto) 0.2 (0.2-1.2) % Lymph # (Auto) 1.51 (0.9-3.2) K/mm3 [place] # (Auto) 0.4 (0.1-0.6) K/mm3 Eos # (Auto) 0.1 (0-0.3) K/mm3 Baso # (Auto) 0.0 (0.0-0.1) K/mm3 Abs Immat Gran (auto) 0.02 (0.00-0.031) K/mm3 Absolute Neuts (auto) 4.1 (1.3-6.7) K/mm3 Absolute Nucleated RBC 0.000 (0.0-0.012) K/mm3 Nucleated RBC % 0.0 (0.0-0.2) % % Immature Plt Fraction 4.8 (0.9-11.2) % ESR 17 (0-20) mm/hr PT (11.1-14.7) Seconds INR APTT (22.3-36.8) Seconds Sodium 143 (137-145) mmol/L Potassium 4.0 (3.4-5.0) mmol/L Chloride 104 (98-107) mmol/L Carbon Dioxide 31 H (22-30) mmol/L Anion Gap 8 (4-12) mmol/L BUN 29 H (9-20) mg/dL Creatinine 1.26 (0.7-1.3) mg/dL Estim Creat Clear Calc 51 ml/min Estimated GFR 55 L (59 - ) Glucose 182 H (65-110) mg/dL Lactic Acid (0.7-2.0) mmol/L Calcium 10.3 H (8.4-10.2) mg/dL Total Bilirubin 0.4 (0.2-1.3) mg/dL AST 33 (17-59) U/L ALT 27 (6-50) U/L Alkaline Phosphatase 94 (38-126) U/L Total Creatine Kinase 94 (55-170) U/L Troponin I < 0.012 (0.000-0.034) ng/mL C-Reactive Protein < 0.5 (<1.0) mg/dL Total Protein 7.1 (6.3-8.2) g/dL Albumin 4.2 (3.5-5.1) g/dL TSH (Reflex) 1.330 (0.465-4.68) uIU/mL Urine Color Yellow (Yellow) Urine Appearance Clear (Clear) Urine pH 5.5 (5.0-9.0) Ur Specific Rena Lara 1.017 (1.001-1.035) Urine Protein Negative (Negative) mg/dL Urine Glucose (UA) Negative (Negative) mg/dL Urine Ketones Negative (Negative) mg/dL Ur Blood (Man) Negative (Negative) Urine Nitrate Negative (Negative) Urine Bilirubin Negative (Negative) Urine Urobilinogen 0.2 (<2.0) mg/dL Leukocyte Esterase Rfl Negative (Negative) ANURAG/UL Influenza A (RT-PCR) Negative (Negative) Influenza B (RT-PCR) Negative (Negative) RSV (RT-PCR) Negative (Negative) SARS-CoV-2 RNA (RT-PCR) Negative (Negative) 09/09/24 Range/Units 12:17 WBC (4.5-10.0) K/mm3 RBC (4.6-6.20) M/mm3 Hgb (14.0-18.0) g/dL Hct (42.0-52.0) % MCV (80-100) fl MCH (26-34) pg MCHC (32-36) g/dl RDW (11.5-14.5) % Plt Count (150-375) k/mm3 MPV (7.4-10.4) fl Immature Gran % (Auto) (0-0.5) % Neut % (Auto) (45.5-73.1) % Lymph % (Auto) (18.3-44.2) % [place] % (Auto) (2.6-8.5) % Eos % (Auto) (0-4.4) % Baso % (Auto) (0.2-1.2) % Lymph # (Auto) (0.9-3.2) K/mm3 [place] # (Auto) (0.1-0.6) K/mm3 Eos # (Auto) (0-0.3) K/mm3 Baso # (Auto) (0.0-0.1) K/mm3 Abs Immat Gran (auto) (0.00-0.031) K/mm3 Absolute Neuts (auto) (1.3-6.7) K/mm3 Absolute Nucleated RBC (0.0-0.012) K/mm3 Nucleated RBC % (0.0-0.2) % % Immature Plt Fraction (0.9-11.2) % ESR (0-20) mm/hr PT 14.1 (11.1-14.7) Seconds INR 1.1 APTT < 20.0 L (22.3-36.8) Seconds Sodium (137-145) mmol/L Potassium (3.4-5.0) mmol/L Chloride (98-107) mmol/L Carbon Dioxide (22-30) mmol/L Anion Gap (4-12) mmol/L BUN (9-20) mg/dL Creatinine (0.7-1.3) mg/dL Estim Creat Clear Calc ml/min Estimated GFR (59 - ) Glucose (65-110) mg/dL Lactic Acid 1.6 (0.7-2.0) mmol/L Calcium (8.4-10.2) mg/dL Total Bilirubin (0.2-1.3) mg/dL AST (17-59) U/L ALT (6-50) U/L Alkaline Phosphatase (38-126) U/L Total Creatine Kinase (55-170) U/L Troponin I (0.000-0.034) ng/mL C-Reactive Protein (<1.0) mg/dL Total Protein (6.3-8.2) g/dL Albumin (3.5-5.1) g/dL TSH (Reflex) (0.465-4.68) uIU/mL Urine Color (Yellow) Urine Appearance (Clear) Urine pH (5.0-9.0) Ur Specific Rena Lara (1.001-1.035) Urine Protein (Negative) mg/dL Urine Glucose (UA) (Negative) mg/dL Urine Ketones (Negative) mg/dL Ur Blood (Man) (Negative) Urine Nitrate (Negative) Urine Bilirubin (Negative) Urine Urobilinogen (<2.0) mg/dL Leukocyte Esterase Rfl (Negative) ANURAG/UL Influenza A (RT-PCR) (Negative) Influenza B (RT-PCR) (Negative) RSV (RT-PCR) (Negative) SARS-CoV-2 RNA (RT-PCR) (Negative) <Mckenna Patel PA-C - Last Filed: 09/09/24 15:40> Lab Results 09/09/24 09/09/24 09/09/24 Range/Units 09:23 09:52 10:18 WBC 6.1 (4.5-10.0) K/mm3 RBC 4.47 L (4.6-6.20) M/mm3 Hgb 13.9 L (14.0-18.0) g/dL Hct 41.8 L (42.0-52.0) % MCV 93.5 (80-100) fl MCH 31.1 (26-34) pg MCHC 33.3 (32-36) g/dl RDW 12.9 (11.5-14.5) % Plt Count 157 (150-375) k/mm3 MPV 11.3 H (7.4-10.4) fl Immature Gran % (Auto) 0.3 (0-0.5) % Neut % (Auto) 66.1 (45.5-73.1) % Lymph % (Auto) 24.6 (18.3-44.2) % [place] % (Auto) 7.2 (2.6-8.5) % Eos % (Auto) 1.6 (0-4.4) % Baso % (Auto) 0.2 (0.2-1.2) % Lymph # (Auto) 1.51 (0.9-3.2) K/mm3 [place] # (Auto) 0.4 (0.1-0.6) K/mm3 Eos # (Auto) 0.1 (0-0.3) K/mm3 Baso # (Auto) 0.0 (0.0-0.1) K/mm3 Abs Immat Gran (auto) 0.02 (0.00-0.031) K/mm3 Absolute Neuts (auto) 4.1 (1.3-6.7) K/mm3 Absolute Nucleated RBC 0.000 (0.0-0.012) K/mm3 Nucleated RBC % 0.0 (0.0-0.2) % % Immature Plt Fraction 4.8 (0.9-11.2) % ESR 17 (0-20) mm/hr PT (11.1-14.7) Seconds INR APTT (22.3-36.8) Seconds Sodium 143 (137-145) mmol/L Potassium 4.0 (3.4-5.0) mmol/L Chloride 104 (98-107) mmol/L Carbon Dioxide 31 H (22-30) mmol/L Anion Gap 8 (4-12) mmol/L BUN 29 H (9-20) mg/dL Creatinine 1.26 (0.7-1.3) mg/dL Estim Creat Clear Calc 51 ml/min Estimated GFR 55 L (59 - ) Glucose 182 H (65-110) mg/dL Lactic Acid (0.7-2.0) mmol/L Calcium 10.3 H (8.4-10.2) mg/dL Total Bilirubin 0.4 (0.2-1.3) mg/dL AST 33 (17-59) U/L ALT 27 (6-50) U/L Alkaline Phosphatase 94 (38-126) U/L Total Creatine Kinase 94 (55-170) U/L Troponin I < 0.012 (0.000-0.034) ng/mL C-Reactive Protein < 0.5 (<1.0) mg/dL Total Protein 7.1 (6.3-8.2) g/dL Albumin 4.2 (3.5-5.1) g/dL TSH (Reflex) 1.330 (0.465-4.68) uIU/mL Urine Color Yellow (Yellow) Urine Appearance Clear (Clear) Urine pH 5.5 (5.0-9.0) Ur Specific Rena Lara 1.017 (1.001-1.035) Urine Protein Negative (Negative) mg/dL Urine Glucose (UA) Negative (Negative) mg/dL Urine Ketones Negative (Negative) mg/dL Ur Blood (Man) Negative (Negative) Urine Nitrate Negative (Negative) Urine Bilirubin Negative (Negative) Urine Urobilinogen 0.2 (<2.0) mg/dL Leukocyte Esterase Rfl Negative (Negative) ANURAG/UL Influenza A (RT-PCR) Negative (Negative) Influenza B (RT-PCR) Negative (Negative) RSV (RT-PCR) Negative (Negative) SARS-CoV-2 RNA (RT-PCR) Negative (Negative) 09/09/24 Range/Units 12:17 WBC (4.5-10.0) K/mm3 RBC (4.6-6.20) M/mm3 Hgb (14.0-18.0) g/dL Hct (42.0-52.0) % MCV (80-100) fl MCH (26-34) pg MCHC (32-36) g/dl RDW (11.5-14.5) % Plt Count (150-375) k/mm3 MPV (7.4-10.4) fl Immature Gran % (Auto) (0-0.5) % Neut % (Auto) (45.5-73.1) % Lymph % (Auto) (18.3-44.2) % [place] % (Auto) (2.6-8.5) % Eos % (Auto) (0-4.4) % Baso % (Auto) (0.2-1.2) % Lymph # (Auto) (0.9-3.2) K/mm3 [place] # (Auto) (0.1-0.6) K/mm3 Eos # (Auto) (0-0.3) K/mm3 Baso # (Auto) (0.0-0.1) K/mm3 Abs Immat Gran (auto) (0.00-0.031) K/mm3 Absolute Neuts (auto) (1.3-6.7) K/mm3 Absolute Nucleated RBC (0.0-0.012) K/mm3 Nucleated RBC % (0.0-0.2) % % Immature Plt Fraction (0.9-11.2) % ESR (0-20) mm/hr PT 14.1 (11.1-14.7) Seconds INR 1.1 APTT < 20.0 L (22.3-36.8) Seconds Sodium (137-145) mmol/L Potassium (3.4-5.0) mmol/L Chloride (98-107) mmol/L Carbon Dioxide (22-30) mmol/L Anion Gap (4-12) mmol/L BUN (9-20) mg/dL Creatinine (0.7-1.3) mg/dL Estim Creat Clear Calc ml/min Estimated GFR (59 - ) Glucose (65-110) mg/dL Lactic Acid 1.6 (0.7-2.0) mmol/L Calcium (8.4-10.2) mg/dL Total Bilirubin (0.2-1.3) mg/dL AST (17-59) U/L ALT (6-50) U/L Alkaline Phosphatase (38-126) U/L Total Creatine Kinase (55-170) U/L Troponin I (0.000-0.034) ng/mL C-Reactive Protein (<1.0) mg/dL Total Protein (6.3-8.2) g/dL Albumin (3.5-5.1) g/dL TSH (Reflex) (0.465-4.68) uIU/mL Urine Color (Yellow) Urine Appearance (Clear) Urine pH (5.0-9.0) Ur Specific Rena Lara (1.001-1.035) Urine Protein (Negative) mg/dL Urine Glucose (UA) (Negative) mg/dL Urine Ketones (Negative) mg/dL Ur Blood (Man) (Negative) Urine Nitrate (Negative) Urine Bilirubin (Negative) Urine Urobilinogen (<2.0) mg/dL Leukocyte Esterase Rfl (Negative) ANURAG/UL Influenza A (RT-PCR) (Negative) Influenza B (RT-PCR) (Negative) RSV (RT-PCR) (Negative) SARS-CoV-2 RNA (RT-PCR) (Negative) <Torito Pretty MD - Last Filed: 09/09/24 18:25> Discharge Plan Discharge Clinical Impression: Upper extremity weakness Lower extremity weakness Qualifiers: Laterality: bilateral Qualified Code(s): R29.898 - Other symptoms and signs involving the musculoskeletal system <Mckenna Patel PA-C - Last Filed: 09/09/24 15:40> Patient Disposition: Still a Patient <Mckenna Patel PA-C - Last Filed: 09/09/24 15:40> Condition: Stable <Mckenna Patel PA-C - Last Filed: 09/09/24 15:40>
--- NOTE | 2024-09-09 09:49 | ECG_ITS ---
Test Date: 2024-09-09 10:16:29 Measurements Intervals [place] Rate: 79 P: 0 ND: 0 QRS: 153 QRSD: 126 T: 78 QT: 415 QTc: 478 Interpretive Statements ELECTRONIC VENTRICULAR PACEMAKER ABNORMAL RHYTHM ECG No previous ECG available for comparison Electronically Signed On 09-09-2024 14:39:23 CDT by Pepito Hong M.D.
[2024-09-09 10:00] LABS: Hematocrit 41.8 % (42.0-52.0); Hemoglobin 13.9 g/dL (14.0-18.0); Immature Granulocyte Percent A 0.3 % (0-0.5); Immature Platelet Fraction Pct 4.8 % (0.9-11.2); Lymphocytes Absolute Auto 1.51 K/mm3 (0.9-3.2); Mean Corpuscular HGB Conc 33.3 g/dl (32-36); Mean Corpuscular Hemoglobin 31.1 pg (26-34); Mean Corpuscular Volume 93.5 fl (80-100); Nucleated Red Blood Cells Absolute Auto 0.000 K/mm3 (0.0-0.012); Nucleated Red Blood Cells Perc 0.0 % (0.0-0.2); Platelet Count Result 157 k/mm3 (150-375); Red Blood Count 4.47 M/mm3 (4.6-6.20); White Blood Count 6.1 K/mm3 (4.5-10.0)
[2024-09-09 10:01] LABS: Add Urine Microscopic? NO; Appearance Urine Clear (Clear); Glucose Urine UA Negative (Negative); Leukocyte Esterase Ur Negative LEU/UL (Negative); Nitrate Urine Negative (Negative); Specific Grav Ur 1.017 (1.001-1.035)
[2024-09-09 10:08] LABS: Alanine Aminotransferase 27 U/L (6-50); Albumin Level 4.2 g/dL (3.5-5.1); Alkaline Phosphatase 94 U/L (38-126); Anion Gap 8 mmol/L (4-12); Aspartate Amino Transferase 33 U/L (17-59); Bilirubin,Total 0.4 mg/dL (0.2-1.3); Blood Urea Nitrogen 29 mg/dL (9-20); CRP < 0.5 mg/dL (<1.0); Calcium 10.3 mg/dL (8.4-10.2); Carbon Dioxide 31 mmol/L (22-30); Chloride 104 mmol/L (98-107); Estimated CRCL calculation 51 ml/min; Estimated Glomerular Filt Rate 55; Glucose 182 mg/dL (65-110); Potassium 4.0 mmol/L (3.4-5.0); Sodium 143 mmol/L (137-145); Total Protein 7.1 g/dL (6.3-8.2)
[2024-09-09 10:18] LABS: Troponin I < 0.012 ng/mL (0.000-0.034)
[2024-09-09 11:15] LABS: Influenza A QL RT-PCR Negative (Negative); Influenza B QL RT-PCR Negative (Negative); RSV RNA, RT-PCR Negative (Negative); SARS-CoV-2 RNA PCR Negative (Negative)
[2024-09-09 11:18] LABS: Creatine Kinase 94 U/L (55-170)
[2024-09-09] MEDS: SODIUM CHLORIDE 0.9% IV 1,000 ML 999 ML IV CONT (11:30)
[2024-09-09] MEDS: MORPHINE SULFATE (*CRX) 2 MG/ML INJ IV PUSH ×2 (12:29→13:51)
[2024-09-09 12:39] LABS: INR 1.1; Prothrombin Time 14.1 Seconds (11.1-14.7)
[2024-09-09 13:17] LABS: Thyroid Stimulating Hormone Reflex 1.330 uIU/mL (0.465-4.68)
[2024-09-09 13:18] LABS: Partial Thromboplastin Time < 20.0 Seconds (22.3-36.8)
[2024-09-09] MEDS: CYCLOBENZAPRINE HCL 10 MG TABLET PO ×2 (14:08→17:27)
[2024-09-09] MEDS: LIDOCAINE 5% PATCH 1 PATCH TRANSDERM (14:15)
--- NOTE | 2024-09-09 16:05 | PCCCNOTE ---
Called to the ED for patient to sign advance directives. Pt. signed, copy placed in pt. chart, and one given to the pt.
--- NOTE | 2024-09-09 16:25 | PC.NURSE ---
Patient to go to the floor after LP
--- NOTE | 2024-09-09 16:52 | P.HP_ITS ---
H&P: HPI History of Present Illness Date/Time: 09/09/24 16:52 Chief Complaint: Extremity weakness Narrative: 84-year-old male with past medical history pacemaker, hyperlipidemia hypertension and final fracture presents with progressive extremity weakness. Patient states that he has had weakness since his surgery spinal surgery November 2023 he states that he has working in rehab because of weakness. He states that over the last 3 weeks he has had progressive weakness and over the last 2 days his unable walk or stand. Patient has no movement in his lower extremities and no reflexes, patient has gross motor movement was shoulder shrugs and upper extremities. Patient states that he has no shortness of breath or difficulty breathing or difficulty swallowing. Lab work in the ED shows carbon dioxide 21, BUN of 29, creatinine of 1.26, GFR 55, UA negative for infection, RSV A/B, and COVID negative. Chest x-ray with small left-sided pleural effusion. CT head with no acute process. Cervical spine CT with no acute process. CT thoracic lumbar with no acute process. Due to the severity of the extremity weakness patient will be admitted for a LP and MRI. Review of Systems Review of Systems: 12 systems were reviewed and are negativ e except for as per HPI. [facility] Past Medical History Medical History (Updated 09/09/24 @ 18:14 by Rose Mary Snell APRN) Pacemaker Jaw pain PONV (postoperative nausea and vomiting) GERD (gastroesophageal reflux disease) STEPHANIE (obstructive sleep apnea) Hyperlipidemia Hypertension Surgical History Surgical History S/P AVR (aortic valve replacement) Social History Social History Smoking status: Never smoker Second hand tobacco smoke exposure: No Alcohol intake: never Substance use: never Substance use type: does not use Do You Feel Safe in your Home?: Yes Lack of Transportation: No Lack of Food: Never True Current Housing: I Have Housing Concerned About Future Housing: No Difficulty Paying Gas/Electric Bills: No Difficulty Paying for Meds: No Currently Unemployed: No Education: High School Diploma/GED Difficulty w/ Childcare or Family Care: No Living arrangements: alone Gender identity (if verbalized by the patient): Male Sexual Orientation (if Verbalized by the Patient): Straight or Heterosexual Spiritual care concerns: No Meds Home Medications and Allergies Home Medications ?Medication ?Instructions ?Recorded ?Confirmed ?Type aspirin 81 mg tablet,delayed 81 mg PO DAILY 11/25/20 09/09/24 History release cholecalciferol (vitamin D3) 25 25 mcg PO DAILY 11/25/20 09/09/24 History mcg (1,000 unit) tablet coQ10 (ubiquinol) 200 mg capsule 200 mg PO QPM 11/25/20 09/09/24 History finasteride 5 mg tablet 5 mg PO QHS 11/25/20 09/09/24 History furosemide 40 mg tablet 40 mg PO BID 11/25/20 09/09/24 History pantoprazole 20 mg tablet,delayed 20 mg PO DAILY 11/25/20 09/09/24 History release calcium carbonate (Oyster Shell 500 mg PO BID 09/09/24 09/09/24 History Calcium) carbamazepine 100 mg 100 mg PO TID 09/09/24 09/09/24 History tablet,extended release,12 hr evolocumab 140 mg/mL subcutaneous 140 mg subcut .[id number] 09/09/24 09/09/24 History pen injector (Lanre Ramos) gabapentin 300 mg capsule 300 mg PO DAILY 09/09/24 09/09/24 History gabapentin 600 mg tablet 600 mg PO QHS 09/09/24 09/09/24 History lidocaine 4 % topical patch 1 patch topical Q24H 09/09/24 09/09/24 History (Aspercreme (lidocaine)) losartan 25 mg tablet 25 mg PO DAILY 09/09/24 09/09/24 History metoprolol succinate 50 mg 50 mg PO DAILY 09/09/24 09/09/24 History tablet,extended release 24 hr nystatin 100,000 unit/gram topical 1 applic topical BID 09/09/24 09/09/24 History powder (Nystop) oxybutynin chloride 5 mg 5 mg PO QHS 09/09/24 09/09/24 History tablet,extended release 24 hr polyethylene glycol 3350 17 gram 17 g PO DAILY 09/09/24 09/09/24 History oral powder packet sennosides 8.6 mg-docusate sodium 1 tab-cap PO BID 09/09/24 09/09/24 History 50 mg tablet (Senexon-S) spironolactone 25 mg tablet 12.5 mg PO DAILY 09/09/24 09/09/24 History tizanidine 4 mg tablet 4 mg PO QHS 09/09/24 09/09/24 History Allergies Allergy/AdvReac Type Severity Reaction Status Date / Time atorvastatin Allergy Unknown Unknown Verified 09/09/24 09:26 ezetimibe Allergy Unknown Unknown Verified 09/09/24 09:26 rosuvastatin Allergy Unknown Unknown Verified 09/09/24 09:26 Vital Signs Vital Signs - 24 hr 09/09/24 09:03 09/09/24 11:55 09/09/24 12:29 Temperature 97.6 F Pulse Rate 80 80 79 Respiratory Rate 13 20 13 Blood Pressure 147/85 H 132/77 148/77 H Pulse Oximetry 99 97 98 09/09/24 13:30 Temperature Pulse Rate 84 Respiratory Rate 14 Blood Pressure 167/95 H Pulse Oximetry 99 Exam Narrative: General: well appearing, appears stated age. HEENT: normocephalic, atraumatic. Mucous membranes moist. EOMI, PERRLA, bilateral sclera anicteric, no conjunctival injection. Neck supple without JVD, lymphadenopathy, or bruit. Respiratory: clear to ascultation bilaterally. No rales/rhonic/wheezes. Cardiovascular: Regular rate and rhythm, normal S1-S2 upon ascultation. No murmurs, rubs, or clicks. PMI is nondisplaced, capillary refill less than 3 second. Abdomen: Soft, round, no pulsatile masses, nondistended and nontender. No rebound, no guarding. No CVA tenderness, no hepatosplenomegaly. Bowel sounds present to all four quadrants. No high pitch or tinkling sounds, resonant to percussion. Extremities: No cyanosis, clubbing, Pulses are palpable 2/2. Lower extremities flaccid no deep tendon reflexes, upper extremities gross motor movement no deep tendon reflexes, generalized edema Neuro: Alert and orientated x 4. PERRLA. Cranial nerves 2-12 intact without focal deficit. Skin: Warm, dry, and intact, without rash, erythema, or lesion. Psych: pleasant, cooperative, normal speech, normal affect, no hallucinations, no dysarthia H&P: Results Labs Labs: Short CBC 09/09/24 Range/Units 09:23 WBC 6.1 (4.5-10.0) K/mm3 Hgb 13.9 L (14.0-18.0) g/dL Hct 41.8 L (42.0-52.0) % Plt Count 157 (150-375) k/mm3 BMP 09/09/24 09:23 Sodium 143 Potassium 4.0 Chloride 104 Carbon Dioxide 31 H BUN 29 H Creatinine 1.26 Glucose 182 H Calcium 10.3 H Cardiac Enzymes 09/09/24 Range/Units 09:23 Total Creatine Kinase 94 (55-170) U/L Troponin I < 0.012 (0.000-0.034) ng/mL Liver Function 09/09/24 Range/Units 09:23 Total Bilirubin 0.4 (0.2-1.3) mg/dL AST 33 (17-59) U/L ALT 27 (6-50) U/L Alkaline Phosphatase 94 (38-126) U/L Albumin 4.2 (3.5-5.1) g/dL Urine 09/09/24 Range/Units 09:52 Urine Color Yellow (Yellow) Urine Appearance Clear (Clear) Urine pH 5.5 (5.0-9.0) Ur Specific [place] 1.017 (1.001-1.035) Urine Protein Negative (Negative) mg/dL Urine Glucose (UA) Negative (Negative) mg/dL Assessment and Plan Assessment and plan (1) Upper extremity weakness: Code(s): R29.898 - Other symptoms and signs involving the musculoskeletal system Status: Acute Assessment and Plan: Possible meningitis versus Guillain-Greeley versus other Neurology consulted LP today with fluid analysis results call to Neurology MRI pending Will move patient to IMU for closer monitoring Continue rest pulse ox (2) Lower extremity weakness: Qualifiers: Laterality: bilateral Qualified Code(s): R29.898 - Other symptoms and signs involving the musculoskeletal system Code(s): R29.898 - Other symptoms and signs involving the musculoskeletal system Status: Acute Assessment and Plan: See plan above (3) CHF (congestive heart failure): Code(s): I50.9 - Heart failure, unspecified Status: Acute Assessment and Plan: Continue diuretics (4) Hypertension: Code(s): I10 - Essential (primary) hypertension Status: Acute Assessment and Plan: Continue losartan (5) Hyperlipidemia: Code(s): E78.5 - Hyperlipidemia, unspecified Status: Acute Assessment and Plan: Continue statin (6) BPH (benign prostatic hyperplasia): Code(s): N40.0 - Benign prostatic hyperplasia without lower urinary tract symptoms Status: Acute Assessment and Plan: Continue Flomax and Proscar (7) CAD (coronary artery disease): Code(s): I25.10 - Atherosclerotic heart disease of resighini coronary artery without angina pectoris Status: Acute Assessment and Plan: Continue aspirin, statin, Cozaar and Toprol Quality VTE Prophylaxis VTE prophylaxis: mechanical ordered and pharmacologic ordered Hospitalist MIPS Advance Care Plan I have confirmed that the patient's Advanced Care Plan is present, code status is documented, or surrogate decision maker is listed in patient medical record.: Yes Medication Reconciliation I have utilized all available resources to obtain, update and review the patients current medications (includes all prescriptions, OTC, herbals, cannabis, and nutritional supplements).: Yes
[2024-09-09] MEDS: HYDROmorphone HCL INJ (*CRX) 2 MG/ML VIAL 0.5 MG IV PUSH ×2 (17:18→23:05)
[2024-09-09 18:21] LABS: Lymphocytes CSF 82 % (40-80); Monocytes CSF 10 % (15-45); Neutrophils CSF 8 % (0-6)
[2024-09-09 18:25] LABS: Nucleated Cell CSF 1 /uL (0-5)
[2024-09-09 18:26] LABS: Red Blood Cell CSF 349 (0-2)
[2024-09-09] MEDS: GABAPENTIN 300 MG CAPSULE 600 MG PO (20:54)
[2024-09-09] MEDS: oxyBUTYnin CHLORIDE XL 5 MG TAB.ER.24 PO (20:54)
[2024-09-09] MEDS: FINASTERIDE 5 MG TABLET PO (20:54)
--- NOTE | 2024-09-09 23:31 | PC.NURSE ---
BLADDER SCANNED OF 698CC, DR BELTRAN NOTIFIED, ORDER FOR SOTOMAYOR CATHETER
--- NOTE | 2024-09-09 23:32 | PC.NURSE ---
REPORT GIVEN TO JAMES IN IMU
[2024-09-10] VITALS (12 sets, daily range): BP systolic 129–154; BP diastolic 46–87; PULSE 51–82; RESP 16–20; TEMP 36.8–37.1; O2SAT 92–99
--- NOTE | 2024-09-10 00:03 | PC.NURSE ---
PT MOVED TO ROOM 214 PER BED
--- NOTE | 2024-09-10 00:03 | PC.NURSE ---
NASREEN KRAUSE NOTIFED OF ROOM TRANSFER
[2024-09-10] MEDS: LIDOCAINE 2% GEL UROJET 10 ML PKG MUCOUS MEM (00:11)
--- NOTE | 2024-09-10 00:13 | PC.NURSE ---
Received patient to room 214 from 261 from Kisha MORGAN
--- NOTE | 2024-09-10 02:36 | PC.NURSE ---
Patient's pacemaker not capturing at times. Patient denies symptoms. Dr. Levin notified. New orders received.
[2024-09-10 03:15] LABS: Hematocrit 38.8 % (42.0-52.0); Hemoglobin 12.5 g/dL (14.0-18.0); Mean Corpuscular HGB Conc 32.2 g/dl (32-36); Mean Corpuscular Hemoglobin 30.6 pg (26-34); Mean Corpuscular Volume 95.1 fl (80-100); Platelet Count Result 139 k/mm3 (150-375); Red Blood Count 4.08 M/mm3 (4.6-6.20); White Blood Count 6.8 K/mm3 (4.5-10.0)
[2024-09-10 03:34] LABS: Magnesium 2.2 mg/dL (1.6-2.3)
[2024-09-10 03:35] LABS: Alanine Aminotransferase 22 U/L (6-50); Albumin Level 3.6 g/dL (3.5-5.1); Alkaline Phosphatase 86 U/L (38-126); Anion Gap 7 mmol/L (4-12); Aspartate Amino Transferase 31 U/L (17-59); Bilirubin,Total 0.3 mg/dL (0.2-1.3); Blood Urea Nitrogen 24 mg/dL (9-20); Calcium 9.8 mg/dL (8.4-10.2); Carbon Dioxide 29 mmol/L (22-30); Chloride 106 mmol/L (98-107); Estimated CRCL calculation 45 ml/min; Estimated Glomerular Filt Rate 48; Glucose 155 mg/dL (65-110); Potassium 3.9 mmol/L (3.4-5.0); Sodium 142 mmol/L (137-145); Total Protein 6.2 g/dL (6.3-8.2)
[2024-09-10] MEDS: CYCLOBENZAPRINE HCL 10 MG TABLET PO (07:54)
[2024-09-10] MEDS: HYDROmorphone HCL INJ (*CRX) 2 MG/ML VIAL 0.5 MG IV PUSH ×2 (07:54→11:40)
[2024-09-10] MEDS: LOSARTAN POTASSIUM 25 MG TABLET PO (08:42)
[2024-09-10] MEDS: GABAPENTIN 300 MG CAPSULE PO (08:42)
[2024-09-10] MEDS: FUROSEMIDE 40 MG TABLET PO (08:42)
[2024-09-10] MEDS: CALCIUM CARBONATE (OSCAL) 500 MG TABLET PO (08:42)
[2024-09-10] MEDS: METOPROLOL SUCCINATE EXT REL 50 MG TABCR PO (08:43)
[2024-09-10] MEDS: SENNA/DOCUSATE SODIUM TABLET 1 TAB PO (08:43)
[2024-09-10] MEDS: CHOLECALCIFEROL (VITAMIN D3) 25 MCG (1,000 UNITS) TABLET PO (08:43)
[2024-09-10] MEDS: PANTOPRAZOLE SOD SESQUIHYDRATE 20 MG TAB PO (08:43)
[2024-09-10] MEDS: ASPIRIN 81 MG ENTERIC TABLET PO (08:43)
[2024-09-10] MEDS: ENOXAPARIN 40 MG/0.4 ML SYRINGE SUB-Q (08:45)
--- NOTE | 2024-09-10 09:05 | P.PNIM_ITS ---
Progress Note: A&P Assessment and Plan (1) Upper extremity weakness: Code(s): R29.898 - Other symptoms and signs involving the musculoskeletal system Status: Acute Assessment and Plan: Possible meningitis versus Guillain[place] versus other Neurology consulted LP today with fluid analysis results call to Neurology MRI pending Moved to IMU for closer monitoring Continue rest pulse ox (2) Lower extremity weakness: Qualifiers: Laterality: bilateral Qualified Code(s): R29.898 - Other symptoms and signs involving the musculoskeletal system Code(s): R29.898 - Other symptoms and signs involving the musculoskeletal system Status: Acute Assessment and Plan: See plan above (3) CHF (congestive heart failure): Code(s): I50.9 - Heart failure, unspecified Status: Acute Assessment and Plan: Continue diuretics (4) Hypertension: Code(s): I10 - Essential (primary) hypertension Status: Acute Assessment and Plan: Continue losartan (5) Hyperlipidemia: Code(s): E78.5 - Hyperlipidemia, unspecified Status: Acute Assessment and Plan: Continue statin (6) BPH (benign prostatic hyperplasia): Code(s): N40.0 - Benign prostatic hyperplasia without lower urinary tract symptoms Status: Acute Assessment and Plan: Continue Flomax and Proscar (7) CAD (coronary artery disease): Code(s): I25.10 - Atherosclerotic heart disease of [place] coronary artery without angina pectoris Status: Acute Assessment and Plan: Continue aspirin, statin, Cozaar and Toprol Time Spent With Patient Time: 59 minutes Subjective Date/time seen: 09/10/24 09:05 Interval history: Planning transfer urgently for MRI at OSH, concern for myelopathy Review of Systems Review of Systems: 12 systems were reviewed and are negativ e except for as per HPI. Exam Narrative: General: well appearing, appears stated age. HEENT: normocephalic, atraumatic. Mucous membranes moist. EOMI, PERRLA, bilateral sclera anicteric, no conjunctival injection. Neck supple without JVD, lymphadenopathy, or bruit. Respiratory: clear to ascultation bilaterally. No rales/rhonic/wheezes. Cardiovascular: Regular rate and rhythm, normal S1-S2 upon ascultation. No murmurs, rubs, or clicks. PMI is nondisplaced, capillary refill less than 3 second. Abdomen: Soft, round, no pulsatile masses, nondistended and nontender. No rebound, no guarding. No CVA tenderness, no hepatosplenomegaly. Bowel sounds present to all four quadrants. No high pitch or tinkling sounds, resonant to percussion. Extremities: No cyanosis, clubbing, Pulses are palpable 2/2. Lower extremities flaccid no deep tendon reflexes, upper extremities gross motor movement no deep tendon reflexes, generalized edema Neuro: Alert and orientated x 4. PERRLA. Cranial nerves 2-12 intact without focal deficit. Skin: Warm, dry, and intact, without rash, erythema, or lesion. Psych: pleasant, cooperative, normal speech, normal affect, no hallucinations, no dysarthria Objective Data Vital Signs Vital Signs: Vital Signs - 24 hr 09/09/24 11:55 09/09/24 12:29 09/09/24 13:30 Temperature Pulse Rate 80 79 84 Respiratory Rate 20 13 14 Blood Pressure 132/77 148/77 H 167/95 H Pulse Oximetry 97 98 99 Oxygen Delivery Fraction of Inspired Oxygen 09/09/24 17:15 09/09/24 17:30 09/09/24 20:00 Temperature 97.3 F L Pulse Rate 80 60 Respiratory Rate 18 Blood Pressure 148/68 H Pulse Oximetry 97 Oxygen Delivery Room Air Fraction of Inspired Oxygen 09/09/24 22:00 09/09/24 22:28 09/10/24 00:00 Temperature 97.9 F Pulse Rate 80 80 70 Respiratory Rate 18 20 Blood Pressure 153/87 H Pulse Oximetry 94 94 96 Oxygen Delivery Room Air Room Air Fraction of Inspired Oxygen 21 09/10/24 00:00 09/10/24 00:07 09/10/24 02:00 Temperature 98.3 F Pulse Rate 71 70 70 Respiratory Rate 17 Blood Pressure 129/46 L Pulse Oximetry 93 Oxygen Delivery Fraction of Inspired Oxygen 09/10/24 04:00 09/10/24 04:00 09/10/24 05:57 Temperature Pulse Rate 68 51 L 64 Respiratory Rate Blood Pressure Pulse Oximetry 96 Oxygen Delivery Room Air Fraction of Inspired Oxygen 09/10/24 06:00 09/10/24 08:00 09/10/24 08:43 Temperature 98.4 F 98.3 F Pulse Rate 74 74 82 Respiratory Rate 17 18 Blood Pressure 154/69 H 129/51 L Pulse Oximetry 95 96 Oxygen Delivery Fraction of Inspired Oxygen Intake/Output Intake/Output: Intake & Output 07/09/2509/08/24 09/09/24 09/10/24 23:59 23:59 23:59 23:59 Intake Total 1340 Output Total 1100 Balance 1340 -1100 Meds/Results Medications: Active Medications Generic Name Dose Route Start Last Admin Trade Name Freq PRN Reason Stop Dose Admin Acetaminophen 650 mg 09/09/24 15:38 Acetaminophen 325 Mg Tablet PO Q4H PRN Mild Pain (1-3) or Fever Aspirin 81 mg 09/10/24 09:00 09/10/24 08:43 Aspirin 81 Mg Enteric Tablet PO 81 mg DAILY ADRIAN Administration Calcium Carbonate 500 mg 09/10/24 09:00 09/10/24 08:42 Calcium Carbonate (Oscal) 500 Mg Tablet PO 500 mg BID ADRIAN Administration Carbamazepine 100 mg 09/10/24 09:00 Carbamazepine Xr 100 Mg Tab.Sr.12h PO TID ADRIAN Cyclobenzaprine HCl 10 mg 09/09/24 15:38 09/10/24 07:54 Cyclobenzaprine Hcl 10 Mg Tablet PO 10 mg Q8H PRN Administration Muscle Spasm Enoxaparin Sodium 40 mg 09/10/24 09:00 09/10/24 08:45 Enoxaparin 40 Mg/0.4 Ml Syringe SUB-Q 40 mg DAILY ADRIAN Administration Finasteride 5 mg 09/09/24 21:00 09/09/24 20:54 Finasteride 5 Mg Tablet PO 5 mg QHS ADRIAN Administration Furosemide 40 mg 09/10/24 09:00 09/10/24 08:42 Furosemide 40 Mg Tablet PO 40 mg BID ADRIAN Administration Gabapentin 600 mg 09/09/24 21:00 09/09/24 20:54 Gabapentin 300 Mg Capsule PO 600 mg QHS ADRIAN Administration Gabapentin 300 mg 09/10/24 09:00 09/10/24 08:42 Gabapentin 300 Mg Capsule PO 300 mg DAILY ADRIAN Administration Hydromorphone HCl 0.5 mg 09/09/24 15:38 09/10/24 07:54 Hydromorphone Hcl Inj (*Crx) 2 Mg/Ml Vial IV PUSH 0.5 mg Q4H PRN Administration Pain Rated 7-10 Losartan Potassium 25 mg 09/10/24 09:00 09/10/24 08:42 Losartan Potassium 25 Mg Tablet PO 25 mg DAILY ADRIAN Administration Metoprolol Succinate 50 mg 09/10/24 09:00 09/10/24 08:43 Metoprolol Succinate Ext Rel 50 Mg Tabcr PO 50 mg DAILY ADRIAN Administration Oxybutynin Chloride 5 mg 09/09/24 21:00 09/09/24 20:54 Oxybutynin Chloride Xl 5 Mg Tab.Er.24 PO 5 mg QHS ADRIAN Administration Pantoprazole Sodium 20 mg 09/10/24 09:00 09/10/24 08:43 Pantoprazole Sod Sesquihydrate 20 Mg Tab PO 20 mg DAILY ADRIAN Administration Polyethylene Glycol 17 gm 09/10/24 09:00 09/10/24 08:45 Polyethylene Glycol 3350 17 Gm Powd.Pack PO 17 gm DAILY ADRIAN Administration Senna/Docusate Sodium 1 tab 09/10/24 09:00 09/10/24 08:43 Senna/Docusate Sodium Tablet PO 1 tab BID ADRIAN Administration Spironolactone 12.5 mg 09/10/24 09:00 09/10/24 08:43 Spironolactone 12.5 Mg Tablet PO 12.5 mg DAILY ADRIAN Administration Vitamin D 25 mcg 09/10/24 09:00 09/10/24 08:43 Cholecalciferol (Vitamin D3) 25 Mcg (1,000 Units) Tablet PO 25 mcg DAILY ADRIAN Administration Radiology Results: ITS Impressions Chest X-Ray 09/09/24 10:51 IMPRESSION: Small left-sided pleural effusion without focal infiltrate. Head CT 09/09/24 10:54 Impression: No acute intracranial hemorrhage or suspicious mass effect. Cervical Spine CT 09/09/24 11:03 Impression 1. Multilevel degenerative changes. No acute fracture of the cervical, thoracic or lumbar spine detected by CT. Thoracic/Lumbar Spine CT 09/09/24 11:03 Impression 1. Multilevel degenerative changes. No acute fracture of the cervical, thoracic or lumbar spine detected by CT. Lumbar Puncture Fluoroscopy 09/09/24 17:29 IMPRESSION: 1. Successful fluoro-guided lumbar puncture with elevated opening pressure of 29 cm water. Labs Labs: Laboratory Results - last 24 hr 09/09/24 09/09/24 09/09/24 09:23 09:52 10:18 WBC 6.1 RBC 4.47 L Hgb 13.9 L Hct 41.8 L MCV 93.5 MCH 31.1 MCHC 33.3 RDW 12.9 Plt Count 157 MPV 11.3 H Immature Gran % (Auto) 0.3 Neut % (Auto) 66.1 Lymph % (Auto) 24.6 [place]verse % (Auto) 7.2 Eos % (Auto) 1.6 Baso % (Auto) 0.2 Lymph # (Auto) 1.51 [place]verse # (Auto) 0.4 Eos # (Auto) 0.1 Baso # (Auto) 0.0 Abs Immat Gran (auto) 0.02 Absolute Neuts (auto) 4.1 Absolute Nucleated RBC 0.000 Nucleated RBC % 0.0 % Immature Plt Fraction 4.8 ESR 17 PT INR APTT Sodium 143 Potassium 4.0 Chloride 104 Carbon Dioxide 31 H Anion Gap 8 BUN 29 H Creatinine 1.26 Estim Creat Clear Calc 51 Estimated GFR 55 L Glucose 182 H Lactic Acid Calcium 10.3 H Phosphorus Magnesium Total Bilirubin 0.4 AST 33 ALT 27 Alkaline Phosphatase 94 Total Creatine Kinase 94 Troponin I < 0.012 C-Reactive Protein < 0.5 Total Protein 7.1 Albumin 4.2 TSH (Reflex) 1.330 Urine Color Yellow Urine Appearance Clear Urine pH 5.5 Ur Specific [place] 1.017 Urine Protein Negative Urine Glucose (UA) Negative Urine Ketones Negative Ur Blood (Man) Negative Urine Nitrate Negative Urine Bilirubin Negative Urine Urobilinogen 0.2 Leukocyte Esterase Rfl Negative CSF Source CSF Appearance CSF Color CSF RBC CSF Tot Nucleated Cells CSF Neutrophils CSF Lymphocytes CSF Monocytes CSF Glucose CSF Total Protein Influenza A (RT-PCR) Negative Influenza B (RT-PCR) Negative RSV (RT-PCR) Negative SARS-CoV-2 RNA (RT-PCR) Negative 09/09/24 09/09/24 09/10/24 12:17 16:04 03:08 WBC 6.8 RBC 4.08 L Hgb 12.5 L Hct 38.8 L MCV 95.1 MCH 30.6 MCHC 32.2 RDW 13.0 Plt Count 139 L MPV 9.6 Immature Gran % (Auto) Neut % (Auto) Lymph % (Auto) [place] % (Auto) Eos % (Auto) Baso % (Auto) Lymph # (Auto) [place] # (Auto) Eos # (Auto) Baso # (Auto) Abs Immat Gran (auto) Absolute Neuts (auto) Absolute Nucleated RBC Nucleated RBC % % Immature Plt Fraction ESR PT 14.1 INR 1.1 APTT < 20.0 L Sodium 142 Potassium 3.9 Chloride 106 Carbon Dioxide 29 Anion Gap 7 BUN 24 H Creatinine 1.42 H Estim Creat Clear Calc 45 Estimated GFR 48 L Glucose 155 H Lactic Acid 1.6 Calcium 9.8 Phosphorus 3.4 Magnesium Total Bilirubin 0.3 AST 31 ALT 22 Alkaline Phosphatase 86 Total Creatine Kinase Troponin I C-Reactive Protein Total Protein 6.2 L Albumin 3.6 TSH (Reflex) Urine Color Urine Appearance Urine pH Ur Specific [place] Urine Protein Urine Glucose (UA) Urine Ketones Ur Blood (Man) Urine Nitrate Urine Bilirubin Urine Urobilinogen Leukocyte Esterase Rfl CSF Source Csf CSF Appearance Hazy A CSF Color Colorless CSF RBC 349 H CSF Tot Nucleated Cells 1 CSF Neutrophils 8 H CSF Lymphocytes 82 H CSF Monocytes 10 L CSF Glucose 81 H CSF Total Protein 299 H Influenza A (RT-PCR) Influenza B (RT-PCR) RSV (RT-PCR) SARS-CoV-2 RNA (RT-PCR) 09/10/24 03:09 WBC RBC Hgb Hct MCV MCH MCHC RDW Plt Count MPV Immature Gran % (Auto) Neut % (Auto) Lymph % (Auto) [place] % (Auto) Eos % (Auto) Baso % (Auto) Lymph # (Auto) [place] # (Auto) Eos # (Auto) Baso # (Auto) Abs Immat Gran (auto) Absolute Neuts (auto) Absolute Nucleated RBC Nucleated RBC % % Immature Plt Fraction ESR PT INR APTT Sodium Potassium Chloride Carbon Dioxide Anion Gap BUN Creatinine Estim Creat Clear Calc Estimated GFR Glucose Lactic Acid Calcium Phosphorus Magnesium 2.2 Total Bilirubin AST ALT Alkaline Phosphatase Total Creatine Kinase Troponin I C-Reactive Protein Total Protein Albumin TSH (Reflex) Urine Color Urine Appearance Urine pH Ur Specific [place] Urine Protein Urine Glucose (UA) Urine Ketones Ur Blood (Man) Urine Nitrate Urine Bilirubin Urine Urobilinogen Leukocyte Esterase Rfl CSF Source CSF Appearance CSF Color CSF RBC CSF Tot Nucleated Cells CSF Neutrophils CSF Lymphocytes CSF Monocytes CSF Glucose CSF Total Protein Influenza A (RT-PCR) Influenza B (RT-PCR) RSV (RT-PCR) SARS-CoV-2 RNA (RT-PCR) Quality VTE Prophylaxis VTE prophylaxis: mechanical ordered and pharmacologic ordered Hospitalist MIPS Advance Care Plan I have confirmed that the patient's Advanced Care Plan is present, code status is documented, or surrogate decision maker is listed in patient medical record.: Yes Medication Reconciliation I have utilized all available resources to obtain, update and review the patients current medications (includes all prescriptions, OTC, herbals, cannabis, and nutritional supplements).: Yes
[2024-09-10] MEDS: ACETAMINOPHEN 500 MG TABLET 1000 MG PO (11:46)
--- NOTE | 2024-09-10 15:15 | WPDNEURCNPN ---
Assessment and Plan Assessment and plan (1) Cervical myelopathy: Code(s): G95.9 - Disease of spinal cord, unspecified Status: Acute Assessment and Plan: The patient has a sensory level to the around see 81 and a there is more profound weakness in the lower limbs and a more significant weakness in the hands suggestive was she ate T1 involvement greater than C5-6 and suggestive of cervical myelopathy at or around C6 to C8 level. Symptoms that developed over last 3 weeks. Now his retention of urine and has a urinary catheter in place. Spinal tap was performed in the emergency which was CSF protein of 299 and the 1 nucleated cell. This of course may raise possibility of GBS the differential diagnosis. However in view of the sensory level and urinary retention and the progression of weakness I suspect it is cervical myelopathy and requires an MRI or a myelogram. The patient has a pacemaker in place and he also has chronic kidney disease and atrial fibrillation congestive cardiac failure is a high risk patient. I will suggest to transfer to a tertiary care center for further studies and management by Neurosurgery. Findings were communicated evident time as the hospitalist who told me later on that the transfer has been arranged. I will be interested to know outcome of the management. I also communicated these findings to the nursing staff and his son called and explained the findings to him also. I shall be glad to assist in further management by explaining above findings to the receiving the shins if they would like to. (2) Hypertension: Code(s): I10 - Essential (primary) hypertension Status: Acute (3) CHF (congestive heart failure): Code(s): I50.9 - Heart failure, unspecified Status: Acute (4) Hyperlipidemia: Code(s): E78.5 - Hyperlipidemia, unspecified Status: Acute (5) BPH (benign prostatic hyperplasia): Code(s): N40.0 - Benign prostatic hyperplasia without lower urinary tract symptoms Status: Acute Plan Since the patient can not have MRI here in view of the pacemaker please refer to discussion above regarding further management. Consult date: 09/10/24 HPI: Bola Bermudez is a 84 year old male with history of atrial fibrillation, chronic kidney disease, cardiac pacemaker in place. He developed weakness in both lower limbs over the past 3 weeks. Now he has developed weakness in his upper limbs in the last 3 4 days. He had a spinal tap done in the emergency room which shows protein was 299 and nucleated cell 1 RBC 349. He has been admitted to the hospital for further evaluation. After admission he developed retention of urine and a require catheterization which is still in place. According to the notes at baseline he uses a wheelchair and transfer independently with a motorized scooter. His gradually increasing weakness in the last 3 weeks. No history of any illness or trauma trauma prior to that. History of surgery in the lumbar spine twice once in 2018 and other 03/2023. [facility] He has not had any changes in mental status. No difficulty speech or swallowing. He denies any pain in the neck thoracic spine or any headache. Nursing staff noted that he feels very tender to touch in the upper limbs. 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 Review of Systems Review of Systems: All systems reviewed & are unremarkable except as noted in HPI and below PMFSH Past Medical History Medical History (Updated 09/10/24 @ 15:23 by Octavio Petersen MD) Cervical myelopathy Pacemaker Jaw pain PONV (postoperative nausea and vomiting) GERD (gastroesophageal reflux disease) STEPHANIE (obstructive sleep apnea) Hyperlipidemia Hypertension Surgical History Surgical History S/P AVR (aortic valve replacement) Social History Social History Smoking status: Never smoker Second hand tobacco smoke exposure: No Alcohol intake: never Substance use: never Substance use type: does not use Do You Feel Safe in your Home?: Yes Lack of Transportation: No Lack of Food: Never True Current Housing: I Have Housing Concerned About Future Housing: No Difficulty Paying Gas/Electric Bills: No Difficulty Paying for Meds: No Currently Unemployed: No Education: High School Diploma/GED Difficulty w/ Childcare or Family Care: No Living arrangements: alone Gender identity (if verbalized by the patient): Male Sexual Orientation (if Verbalized by the Patient): Straight or Heterosexual Spiritual care concerns: No Meds Home Medications and Allergies Home Medications ?Medication ?Instructions ?Recorded ?Confirmed ?Type aspirin 81 mg tablet,delayed 81 mg PO DAILY 11/25/20 09/09/24 History release cholecalciferol (vitamin D3) 25 25 mcg PO DAILY 11/25/20 09/09/24 History mcg (1,000 unit) tablet coQ10 (ubiquinol) 200 mg capsule 200 mg PO QPM 11/25/20 09/09/24 History finasteride 5 mg tablet 5 mg PO QHS 11/25/20 09/09/24 History furosemide 40 mg tablet 40 mg PO BID 11/25/20 09/09/24 History pantoprazole 20 mg tablet,delayed 20 mg PO DAILY 11/25/20 09/09/24 History release calcium carbonate ([place]yster [place] 500 mg PO BID 09/09/24 09/09/24 History Calcium) carbamazepine 100 mg 100 mg PO TID 09/09/24 09/09/24 History tablet,extended release,12 hr evolocumab 140 mg/mL subcutaneous 140 mg subcut .[id number] 09/09/24 09/09/24 History pen injector (Sirishasaeid Richard) gabapentin 300 mg capsule 300 mg PO DAILY 09/09/24 09/09/24 History gabapentin 600 mg tablet 600 mg PO QHS 09/09/24 09/09/24 History lidocaine 4 % topical patch 1 patch topical Q24H 09/09/24 09/09/24 History (Aspercreme (lidocaine)) losartan 25 mg tablet 25 mg PO DAILY 09/09/24 09/09/24 History metoprolol succinate 50 mg 50 mg PO DAILY 09/09/24 09/09/24 History tablet,extended release 24 hr nystatin 100,000 unit/gram topical 1 applic topical BID 09/09/24 09/09/24 History powder (Nystop) oxybutynin chloride 5 mg 5 mg PO QHS 09/09/24 09/09/24 History tablet,extended release 24 hr polyethylene glycol 3350 17 gram 17 g PO DAILY 09/09/24 09/09/24 History oral powder packet sennosides 8.6 mg-docusate sodium 1 tab-cap PO BID 09/09/24 09/09/24 History 50 mg tablet (Senexon-S) spironolactone 25 mg tablet 12.5 mg PO DAILY 09/09/24 09/09/24 History tizanidine 4 mg tablet 4 mg PO QHS 09/09/24 09/09/24 History Allergies Allergy/AdvReac Type Severity Reaction Status Date / Time atorvastatin Allergy Unknown Unknown Verified 07/09/25 09:26 ezetimibe Allergy Unknown Unknown Verified 09/09/24 09:26 rosuvastatin Allergy Unknown Unknown Verified 09/09/24 09:26 Vital Signs Vital Signs - 24 hr 09/09/24 17:15 09/09/24 17:30 09/09/24 20:00 Temperature 97.3 F L Pulse Rate 80 60 Respiratory Rate 18 Blood Pressure 148/68 H Pulse Oximetry 97 Oxygen Delivery Room Air Fraction of Inspired Oxygen 09/09/24 22:00 09/09/24 22:28 09/10/24 00:00 Temperature 97.9 F Pulse Rate 80 80 70 Respiratory Rate 18 20 Blood Pressure 153/87 H Pulse Oximetry 94 94 96 Oxygen Delivery Room Air Room Air Fraction of Inspired Oxygen 21 09/10/24 00:00 09/10/24 00:07 09/10/24 02:00 Temperature 98.3 F Pulse Rate 71 70 70 Respiratory Rate 17 Blood Pressure 129/46 L Pulse Oximetry 93 Oxygen Delivery Fraction of Inspired Oxygen 09/10/24 04:00 09/10/24 04:00 09/10/24 05:57 Temperature Pulse Rate 68 51 L 64 Respiratory Rate Blood Pressure Pulse Oximetry 96 Oxygen Delivery Room Air Fraction of Inspired Oxygen 09/10/24 06:00 09/10/24 08:00 09/10/24 08:00 Temperature 98.4 F 98.3 F Pulse Rate 74 74 82 Respiratory Rate 17 18 18 Blood Pressure 154/69 H 129/51 L Pulse Oximetry 95 96 96 Oxygen Delivery Room Air Fraction of Inspired Oxygen 21 09/10/24 08:00 09/10/24 08:43 09/10/24 10:00 Temperature Pulse Rate 69 82 81 Respiratory Rate Blood Pressure Pulse Oximetry Oxygen Delivery Fraction of Inspired Oxygen 09/10/24 12:00 09/10/24 12:00 09/10/24 12:00 Temperature 98.7 F Pulse Rate 80 81 80 Respiratory Rate 20 20 Blood Pressure 148/69 H Pulse Oximetry 92 92 Oxygen Delivery Room Air Fraction of Inspired Oxygen 21 09/10/24 14:00 Temperature Pulse Rate 80 Respiratory Rate Blood Pressure Pulse Oximetry Oxygen Delivery Fraction of Inspired Oxygen Exam Narrative: Fully conscious alert, oriented to self time place and person. Speech is fluent and articulate. Patient is cooperative. exam head and neck shows no evidence of external trauma. No nuchal rigidity. Heart sounds were normal. No. Cranial nerves show pupils were equal reactive light. Visual [place] by confrontation are normal. There is no facial asymmetry. Facial sensation intact. Other cranial nerves within normal limits. Motor system power grade to 1 to 2/5 in the lower limbs when tested assistance is unable to lift his leg against the gravity. In upper limbs power grade 4/5 proximally wears hand keyboarding clerk is significantly impaired. Sensory examination reveals a sensory level to around T1-T2 level. Patient reports a sensation at 10 on a scale of 10 in the neck and face were 1 on 9 drawn at Upper part of the sternum. No involuntary movements are seen. Patient a urinary catheter in place. Results Labs 09/10/24 03:08 09/10/24 03:08 Labs: Short CBC 09/10/24 Range/Units 03:08 WBC 6.8 (4.5-10.0) K/mm3 Hgb 12.5 L (14.0-18.0) g/dL Hct 38.8 L (42.0-52.0) % Plt Count 139 L (150-375) k/mm3 BMP 09/10/24 03:08 Sodium 142 Potassium 3.9 Chloride 106 Carbon Dioxide 29 BUN 24 H Creatinine 1.42 H Glucose 155 H Calcium 9.8 Liver Function 09/10/24 Range/Units 03:08 Total Bilirubin 0.3 (0.2-1.3) mg/dL AST 31 (17-59) U/L ALT 22 (6-50) U/L Alkaline Phosphatase 86 (38-126) U/L Albumin 3.6 (3.5-5.1) g/dL
--- NOTE | 2024-09-10 15:33 | PC.NURSE ---
Report called to EDDIE Bartlett at [facility]. Patient being transferred there via ambulance to room 464. Patient's son Masood Bermudez called and updated, verbalizes understanding at this time. Patient updated on plan of care and told that ambulance is expected to be here in approximately 30 min. Verbalizes understanding. Accepting doctor is Dr. Flynn at [facility] in [place], [place].
--- NOTE | 2024-09-10 16:28 | PC.NURSE ---
Ambulance arrived to transport patient to [facility] as ordered. Report given to EMS.
--- NOTE | 2024-09-29 01:28 | P.TS_ITS ---
Transfer Discharge Sum: Prov Provider Date of admission: 09/10/24 15:54 Primary care physician: Tyler Valdez, MD Admitting clinician: Lorrie Rodriguez MD Consults: 09/09/24 15:39 Consult to Physician Routine Comment: Spoke with Dr. Israel at 1636 09/09. ([facility] SNT). Consulting Provider: Sebastián Israel call center operations manager/MD group to consult: Dr. Israel Reason for consultation: Extremity weakness Has provider been notified: Yes Receiving physician/facility: Catrachita Steward NP 09/09/24 15:39 [facility] DS: Admitting Diagnosis Discharge Date 09/10/24 Admitting Diagnosis Progressive weakness DS: Discharge Diagnosis Discharge Diagnosis (1) Lower extremity weakness: Qualifiers: Laterality: bilateral Qualified Code(s): R29.898 - Other symptoms and signs involving the musculoskeletal system Code(s): R29.898 - Other symptoms and signs involving the musculoskeletal system Status: Acute (2) Upper extremity weakness: Code(s): R29.898 - Other symptoms and signs involving the musculoskeletal system Status: Acute Transfer Discharge Sum: Med Medications Active and Home Medications: Home Medications aspirin 81 mg tablet,delayed release 81 mg PO DAILY 11/25/20 [History Confirmed 09/09/24] cholecalciferol (vitamin D3) 25 mcg (1,000 unit) tablet 25 mcg PO DAILY 11/25/20 [History Confirmed 09/09/24] coQ10 (ubiquinol) 200 mg capsule 200 mg PO QPM 11/25/20 [History Confirmed 09/09/24] finasteride 5 mg tablet 5 mg PO QHS 11/25/20 [History Confirmed 09/09/24] furosemide 40 mg tablet 40 mg PO BID 11/25/20 [History Confirmed 09/09/24] pantoprazole 20 mg tablet,delayed release 20 mg PO DAILY 11/25/20 [History Confirmed 09/09/24] calcium carbonate (Oyster Shell Calcium) 500 mg PO BID 09/09/24 [History Confi rmed 09/09/24] carbamazepine 100 mg tablet,extended release,12 hr 100 mg PO TID 09/09/24 [History Confirmed 09/09/24] evolocumab 140 mg/mL subcutaneous pen injector (Repatha SureClick) 140 mg subcut .[id number] 09/09/24 [History Confirmed 09/09/24] gabapentin 300 mg capsule 300 mg PO DAILY 09/09/24 [History Confirmed 09/09/24] gabapentin 600 mg tablet 600 mg PO QHS 09/09/24 [History Confirmed 09/09/24] lidocaine 4 % topical patch (Aspercreme (lidocaine)) 1 patch topical Q24H 09/09/24 [History Confirmed 09/09/24] losartan 25 mg tablet 25 mg PO DAILY 09/09/24 [History Confirmed 09/09/24] metoprolol succinate 50 mg tablet,extended release 24 hr 50 mg PO DAILY 09/09/24 [History Confirmed 09/09/24] nystatin 100,000 unit/gram topical powder (Nystop) 1 applic topical BID 09/09/24 [History Confirmed 09/09/24] oxybutynin chloride 5 mg tablet,extended release 24 hr 5 mg PO QHS 09/09/24 [History Confirmed 09/09/24] polyethylene glycol 3350 17 gram oral powder packet 17 g PO DAILY 09/09/24 [History Confirmed 09/09/24] sennosides 8.6 mg-docusate sodium 50 mg tablet (Senexon-S) 1 tab-cap PO BID 09/09/24 [History Confirmed 09/09/24] spironolactone 25 mg tablet 12.5 mg PO DAILY 09/09/24 [History Confirmed 09/09/24] tizanidine 4 mg tablet 4 mg PO QHS 09/09/24 [History Confirmed 09/09/24] Transfer Discharge Sum: Hosp Hospital Course Hospital course: Bola Bermudez is a 84 year old male admitted for progressive weakness Neurology consulted, Dr Petersen: The patient has a sensory level to the around T1 and a there is more profound weakness in the lower limbs and a more significant weakness in the hands suggestive of T1 involvement greater than C5-6 and suggestive of cervical myelopathy at or around C6 to C8 level. Symptoms that developed over last 3 weeks. Now his retention of urine and has a urinary catheter in place. Spinal tap was performed in the emergency which was CSF protein of 299 and the 1 nucleated cell. This of course may raise possibility of GBS the differential diagnosis. However in view of the sensory level and urinary retention and the progression of weakness I suspect it is cervical myelopathy and requires an MRI or a myelogram. The patient has a pacemaker in place and he also has chronic kidney disease and atrial fibrillation congestive cardiac failure is a high risk patient. I will suggest to transfer to a tertiary care center for further studies and management by Neurosurgery. Patient Condition: Gaurded Prognosis Time Spent with Patient Time attestation: Total time spent providing and/or coordinating transfer services: 72 minutes Exam Narrative: General - Awake and alert. No acute distress Eyes - PERRLA, EOM intact ENT - No thrush, No erythema Neck - No noticeable or palpable swelling Lymph Nodes - No lymphadenopathy Cardiovascular - RRR no m/r/g, no JVD Lungs: Clear to auscultation, No wheezing, use of accessory muscles, no crackles Skin - Skin warm and dry, no wounds or rashes Abdomen - Normal bowel sounds, abdomen soft and nontender Extremities - No edema, cyanosis or clubbing Musculoskeletal - 5/5 strength, normal range of motion, no swollen or erythematous joints. Neurological ? Alert and oriented x 4, PERRLA, Visual rosenthal normal, No facial asymmetry. and sensation normal. Speech fluent and articulate. Motor system power grade to 1 to 2/5 in the lower limbs when tested assistance is unable to lift his leg against the gravity. 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 Sensory examination reveals a sensory level to around T1-T2 level. Patient reports a sensation at 10 on a scale of 10 in the neck and face were 1 on 9 drawn at Upper part of the sternum. No involuntary movements are seen. Psych: Normal mood and affect DS: Data Data Completed and Pending Completed studies during hospitalization: 09/09 Successful fluoro-guided lumbar puncture with elevated opening pressure of 29 cm water.
== END 2024-09-10 16:25 | disposition short-term general hospital (02) | DRG 92 ==
LOC: ANHED 15:34 → ANH2MED 15:47 → ANHIMU 23:42
PROVIDERS: Internal Medicine; Admitting Provider Internal Medicine; Emergency Provider Physician Assistant; PCP Emergency Medicine; Visit Provider Internal Medicine
DX: G95.9 Disease of spinal cord, unspecified (principal); I13.0 Hypertensive heart and chronic kidney disease with heart failure and stage 1 through stage 4 chronic kidney disease, or unspecified chronic kidney disease; R29.898 Other symptoms and signs involving the musculoskeletal system; G47.33 Obstructive sleep apnea (adult) (pediatric); E78.5 Hyperlipidemia, unspecified; K21.9 Gastro-esophageal reflux disease without esophagitis; I48.0 Paroxysmal atrial fibrillation; Z66 Do not resuscitate; I50.9 Heart failure, unspecified; N18.9 Chronic kidney disease, unspecified; I25.10 Atherosclerotic heart disease of native coronary artery without angina pectoris; N40.0 Benign prostatic hyperplasia without lower urinary tract symptoms; R33.9 Retention of urine, unspecified; Z95.2 Presence of prosthetic heart valve; Z98.1 Arthrodesis status; Z95.0 Presence of cardiac pacemaker
CPT/HCPCS: 36415; 62328; 70450; 71045; 72126; 72129; 72132; 80053; 81003; 82550; 82945; 83605; 83735; 84100; 84157; 84443; 84484; 85025; 85027; 85055; 85610; 85652; 85730; 86140; 87040; 87070; 87637; 89051; 93005; 96361; 96374; 96375; 99285; A9270; G0378; J1171; J1650; J2270; J7030; Q9967